=== PATIENT | female | born 1975 | race Caucasian/White ===

== ENCOUNTER 2018-05-08 13:00 | Outpatient (RCR) | payer OTHER, SELFPAY ==
--- NOTE | 2018-04-30 15:17 | HMH.PTOPWND ---
Rehab Outpt Wound Evaluation Rehab OP Wound Evaluation Start: 04/30/18 14:09 Freq: Status: Active Protocol: Document 04/30/18 15:10 SHANNAN (Rec: 04/30/18 15:17 PHORTRISTEN [id number]) Electronically Signed By Jone Aguiar, PT 04/30/18 15:10 Subjective/History History History Pt is 42 yo white female who presents with c/o swelling all over my body x ~ 18 years , gradually worsening. SHe reports significant hx of multiple abdominal surgeries including JACQUELYN/BSO, APPY, CCY, and adhesion removal x 4-5. She reports tenderness to palpation all over and intermittent numbness on extremities due to edema. She is currently suffering from and abdominal hernia and has had inguinal lymph node removal in the past. Subjective Subjective C/O pain to touch thrpoughout fredis UE and LE. Lymphedema Eval Classification of Lymphedema Secondary Lymphedema Yes Stemmer's sign Stemmer's Sign no Stage of Lymphedema Lymphedema stages Stage II (Pitting edema, increased fibrosis w/ decreased pitting) Skin Changes Dry Skin Yes Pain Scale Pain Scale (0-10) 3 Affected Extremities Areas Affected by Lymphedema/Edema Right Upper Extremity Left Upper Extremity Abdomen Right Lower Extremity Left Lower Extremity Manual Lymphatic Drainage Treatment Area MLD Treatment Area Right Upper Extremity Left Upper Extremity Abdomen Right Lower Extremity Left Lower Extremity Wound Problems/Impairments Impairments Problems/Impairmments Palpation Tenderness Increased Edema Lymphedema Present Subjective C/O Pain Impaired Self Care/Self Management Prognosis Rehab Potential Fair Clinical Impression Consistent with Diagnosis Yes Short Term Goals Number of Weeks 4 Decreased Palpation Tenderness Yes: to min Decrease Subjective C/O Pain Yes: 2 Pa
== END 2018-05-08 13:01 | disposition home or self-care (01) ==
LOC: PT 13:00
PROVIDERS: Family Provider Family Medicine; PCP Nurse Practitioner Family; Visit Provider Nurse Practitioner Family
DX: I89.0 Lymphedema, not elsewhere classified (principal)
CPT/HCPCS: 97140; 97163

== ENCOUNTER → 2018-07-03 11:41 | Outpatient (CLI) | payer OTHER, SELFPAY ==
--- NOTE | 2018-07-03 11:49 | XR_ITS ---
XR hip RT 2-3V w/pelvis HISTORY: ITS.REASON: COUGH,AMANDA HIP PAIN ORDERING PHYSICIAN: Sangita Duran PATIENT AGE: 42 years COMPARISON: None FINDINGS: Mild osteoarthritis is present involving the right hip with decrease in the joint space and osteosclerosis of the acetabulum. No fracture or dislocation. No lytic or blastic change. IMPRESSION: Mild osteoarthritis of the right hip
--- NOTE | 2018-07-03 11:49 | XR_ITS ---
XR chest 2V HISTORY: ITS.REASON: COUGH,AMANDA HIP PAIN ORDERING PHYSICIAN: Sangita Duran PATIENT AGE: 42 years COMPARISON: 03/25/2015 FINDINGS: The cardiomediastinal silhouette and pulmonary vascularity are within normal limits. The lungs are clear without infiltrates, suspicious nodules, or pleural effusions. No acute bony abnormalities. IMPRESSION: Negative chest, no acute finding
--- NOTE | 2018-07-03 11:49 | XR_ITS ---
XR hip LT 2-3V w/pelvis HISTORY: ITS.REASON: COUGH,AMANDA HIP PAIN ORDERING PHYSICIAN: Sangita Duran PATIENT AGE: 42 years COMPARISON: None FINDINGS: Minor osteoarthritic changes are present involving the left hip with minimal osteosclerosis of the acetabular roof and osteophyte formation along the inferior acetabulum. No fracture or dislocation. No lytic or blastic change. IMPRESSION: Mild osteoarthritis left hip
== END ==
PROVIDERS: PCP Nurse Practitioner Family; Visit Provider Nurse Practitioner Family
DX: R05 Cough (principal); M25.552 Pain in left hip; M25.551 Pain in right hip
CPT/HCPCS: 71046; 73502

== ENCOUNTER → 2018-07-08 12:47 | Outpatient (CLI) | payer OTHER, SELFPAY ==
--- NOTE | 2018-07-08 12:57 | XR_ITS ---
EXAM: XR lumbar spine min 4V HISTORY: Low back pain following a fall, left hip pain ORDERING PHYSICIAN: Sangita Duran PATIENT AGE: 42 years COMPARISON: None FINDINGS: Normal alignment. No fracture or dislocation. No lytic or blastic change. Mild degenerative disc disease is present at T12-L1 and L1-L2 and L4-L5. . Mild facet arthritic changes are present at L5-S1. IMPRESSION: 1. No acute finding. 2. Mild lumbar spondylosis as described above
--- NOTE | 2018-07-08 12:57 | XR_ITS ---
XR hip LT 2-3V w/pelvis HISTORY: ITS.REASON: LEFT HIP PAIN, LEFT LOWER BACK PAIN. S/P FALL ORDERING PHYSICIAN: Sangita Duran PATIENT AGE: 42 years COMPARISON: None FINDINGS: There are mild osteoarthritic changes of both hips as seen on the frontal view of the pelvis. Dedicated views of the left hip show no fracture or dislocation. No lytic or blastic change. A small bone island is present in the neck of the femur. IMPRESSION: Mild osteoarthritis of the hips
== END ==
PROVIDERS: PCP Nurse Practitioner Family; Visit Provider Nurse Practitioner Family
DX: M25.552 Pain in left hip (principal); M54.42 Lumbago with sciatica, left side
CPT/HCPCS: 72110; 73502

== ENCOUNTER → 2019-02-20 15:17 | Outpatient (CLI) | payer SELFPAY ==
--- NOTE | 2019-02-20 15:26 | XR_ITS ---
XR ankle LT min 3V HISTORY: Posttraumatic pain ITS.REASON: INJURY TO LEFT ANKLE,FALL ORDERING PHYSICIAN: Sangita Duran APRN PATIENT AGE: 43 years Comparison: None FINDINGS: No fracture or dislocation. No lytic or blastic change. There is normal mineralization.. The joint spaces are well-preserved. No significant degenerative/arthritic changes. No erosive changes evident. IMPRESSION: Negative ankle, no acute finding
--- NOTE | 2019-02-20 15:26 | XR_ITS ---
XR foot LT min 3V HISTORY: Pain following injury ITS.REASON: LEFT FOOT INJURY, FALL ORDERING PHYSICIAN: Sangita Duran APRN PATIENT AGE: 43 years COMPARISON: None FINDINGS: No fracture or dislocation. No lytic or blastic change. There is normal mineralization.. The joint spaces are well-preserved. No significant degenerative/arthritic changes. No erosive changes evident. IMPRESSION: Negative, no acute finding
--- NOTE | 2019-02-20 15:26 | XR_ITS ---
XR tibia fibula LT 2V CLINICAL INDICATION: ITS.REASON: LT LOWER LEG PAIN,FALL ORDERING PHYSICIAN: Sangita Duran APRN PATIENT AGE: 43 years Comparison: None FINDINGS: No fracture or dislocation IMPRESSION: No acute finding
== END ==
PROVIDERS: PCP Nurse Practitioner Family; Visit Provider Nurse Practitioner Family
DX: S99.912A Unspecified injury of left ankle, initial encounter (principal); S99.922A Unspecified injury of left foot, initial encounter; M79.662 Pain in left lower leg
CPT/HCPCS: 73590; 73610; 73630

== ENCOUNTER → 2019-03-19 11:16 | Outpatient (CLI) | payer OTHER, SELFPAY ==
[2019-03-20 07:35] LABS: Hepatitis C Antibody <0.1 s/co ratio (0.0-0.9)
[2019-03-20 08:46] LABS: Rapid Plasma Reagin Ab Titer Non Reactive (NonRea<1:1)
[2019-03-20 18:44] LABS: HIV Screen 4th Generation wRfx Non Reactive (Non Reactive)
== END ==
PROVIDERS: Visit Provider Obstetrics & Gynecology
DX: Z11.3 Encounter for screening for infections with a predominantly sexual mode of transmission (principal); Z01.419 Encounter for gynecological examination (general) (routine) without abnormal findings
CPT/HCPCS: 36415; 86592; 86703; 87380; G0432

== ENCOUNTER → 2019-06-26 11:06 | Outpatient (CLI) | payer OTHER, SELFPAY ==
[2019-06-26 11:58] LABS: Basophils % 0.5 % (0.1-2.0); Eosinophils # 0.2 K/mm3 (0.0-0.4); Hematocrit 43.3 % (37.0-47.0); Hemoglobin 13.8 g/dL (12.2-16.2); Lymphocytes # 3.2 K/mm3 (0.7-4.5); Lymphocytes % 49.7 % (10-50); Mean Corpuscular HGB Conc 31.9 g/dL (31.8-35.4); Mean Corpuscular Hemoglobin 29.9 pg (27.0-31.2); Mean Corpuscular Volume 93.8 fl (81-99); Mean Platelet Volume 6.5 fl (7.4-10.4); Monocytes # 0.3 K/mm3 (0.1-1.0); Monocytes % 5.3 % (1.7-9.3); Neutrophils # 2.7 K/mm3 (1.8-7.8); Neutrophils % 41.5 % (37.0-80.0); Platelet Count 225 K/mm3 (142-424); Red Blood Count 4.61 M/mm3 (4.20-5.40); Red Cell Distribution Width 13.5 % (11.5-17.5); White Blood Count 6.4 K/mm3 (4.8-10.8)
[2019-06-26 13:41] LABS: Alanine Aminotransferase 27 U/L (12-78); Albumin Level 3.6 gm/dL (3.4-5.0); Albumin/Globulin Ratio 1.1 (1.1-1.8); Alkaline Phosphatase 66 U/L (46-116); Anion Gap 8.4 mEq/L (5-15); Aspartate Amino Transferase 41 U/L (15-37); Bilirubin,Total 0.3 mg/dL (0.2-1.0); Blood Urea Nitrogen 12 mg/dL (7-18); Carbon Dioxide 32 mmol/L (21.0-32.0); Chloride 105 mmol/L (98-107); Creatinine,Serum 1.08 mg/dL (0.55-1.02); Estimated Glomerular Filt Rate 55 ml/min (>60); GFR (African American) 67 ML/MIN (>60); Globulin 3.4 gm/dl (1.3-3.2); Glucose 87 mg/dL (74-106); Potassium 4.4 mmoL/L (3.5-5.1); Sodium 141 mmol/L (136-145)
== END ==
PROVIDERS: Visit Provider Nurse Practitioner Family
DX: R10.9 Unspecified abdominal pain (principal)
CPT/HCPCS: 36415; 80053; 85025

== ENCOUNTER 2020-03-08 18:45 | Observation (INO) | payer OTHER, SELFPAY ==
[2020-03-08] VITALS (9 sets, daily range): BP systolic 111–147; BP diastolic 31–109; PULSE 83–97; RESP 16–22; TEMP 36.9–37.7; O2SAT 96–100; BMI 35.9
--- NOTE | 2020-03-08 18:59 | ECG_ITS ---
APPROVED REPORT Exam: Resting ECG HR:94 bpm ECG Measurements Heart Rate 94 AXES RI 148 P 61 QRSd 86 QRS 55 QT 378 T 34 QTc 472 <Conclusion> Normal sinus rhythm Low voltage QRS ST abnormality, possible digitalis effect Abnormal ECG Electronically signed by : Polo Blakely, 03/09/2020 08:26:51
--- NOTE | 2020-03-08 18:59 | XR_ITS ---
PROCEDURE: XR CHEST PORTABLE CLINICAL HISTORY: seizure COMPARISON: CXR CHEST(2 VIEWS-NOT PORTABLE) from 12/10/2014 CXR CHEST(2 VIEWS-NOT PORTABLE) from 03/25/2015 [facility] CTA-CHEST from 05/24/2017 infiltrate in the right lung base CXR2V XR chest 2V from 07/03/2018 FINDINGS: There is mild patient rotation. Normal heart size. Overall there is increased density of the right hemithorax compared to the left side which is felt to be technical in nature. There is some increased density in the right lower lobe which could be due to some underlying infiltrate or atelectasis. IMPRESSION: Possible right basilar infiltrate. Consider upright PA and lateral chest for further evaluation Dictated by: Kyle Benítez MD 03/08/2020 22:03 Electronically signed by Kyle Benítez MD in [place] 03/08/2020 22:03
--- NOTE | 2020-03-08 19:00 | CT_ITS ---
PROCEDURE: CT HEAD/BRAIN WO CON CLINICAL INDICATION: seizure Seizure, unresponsive COMPARISON: HDWO CT HEAD W/O CONTRAST from 06/27/2014 TECHNIQUE: Axial images obtained. All CT scans at the facility use one or more dose reduction, viz: automated exposure control, ma/kV adjustment per patient size (including targeted exams where dose is matched to indication, i.e. head), or iterative reconstruction technique. FINDINGS: No midline shift, mass effect, intracranial hemorrhage, hydrocephalus, or extra-axial fluid collection is evident. The calvarium has an unremarkable appearance. No mastoid effusion. There is mild mucosal thickening in the maxillary sinuses IMPRESSION: No acute intracranial finding Dictated by: Kyle Benítez MD 03/08/2020 22:18 Electronically signed by Kyle Benítez MD in [facility] 03/08/2020 22:18
--- NOTE | 2020-03-08 19:10 | PC.NURSE ---
spoke with pt daughter at this time, states she is unable to come to the hospital r/t having her small children with her. States that she was on the phone with Pt and pt was not acting right , states her grandmother (pts mother) observed pt having a seizure. Reports pt has hx of seizures. Notified ER .
--- NOTE | 2020-03-08 19:12 | HMH.EDGENADL ---
ED Disposition Condition on Discharge: Fair - Critical Care Critical Care Time: Yes Total Critical Care Time: 40 Vital system(s) involved:: Central Nervous System My critical care processes included: Assessment & monitoring of V/S, Initial and Re-exams, Data Review/Interpretation, Coordinating Care, Medication Orders and management, Documentation <Ward Nuñez - Last Filed: 03/08/20 20:04> <Walter Reynolds - Last Filed: 03/08/20 22:11> Clinical Impression: Seizures Aspiration pneumonia Qualifiers: Aspiration pneumonia type: unspecified Laterality: right Lung location: lower lobe of lung Qualified Code(s): J69.0 - Pneumonitis due to inhalation of food and vomit Disposition: Admitted as Observation Referrals: Provider,Referral, MD [Primary Care Provider] - Attestation: On 03/08/20, the high probability of a clinically significant, sudden or life threatening deterioration of the following system(s) required my full and direct attention, intervention and personal management. The time I documented below is in addition to time spent performing reported procedures but includes the following listed in this critical care notation. Medical Decision Making - Tristan Inquiry Pt receiving controlled substance: Yes (ativan for seizure) Tristan was queried for this patient: Yes Reference #:: [id number] Risks and benefits of using a controlled substance: were not discussed with pt by me Comment: 7 rxs. last 2 rxs gabapentin - Lab Data Result diagrams: 03/08/20 18:50 03/08/20 18:50 - Reevaluation(s) Time: 19:16 <SavannahWard - Last Filed: 03/08/20 20:04> - Lab Data Lab results reviewed: Yes: I reviewed the patient's lab results. Result diagrams: 03/08/20 18:50 03/08/20 18:50 - CT Data CT Scan: Head Time Received: 22:[address] Reviewed: Yes: I have viewed the radiologist's interpretation Preliminary Findings: Normal/NAD - Physician Consults Physician Consulted: lorie Reason -: Admission <Walter Reynolds - Last Filed: 03/08/20 22:11> Vital Signs: 03/08/20 18:45 03/08/20 18:52 03/08/20 19:32 Temperature 99.9 F H Temperature Source Rectal Pulse Rate [Right Radial] 83 93 H 94 H Respiratory Rate 22 22 18 Blood Pressure [Right Arm] 127/31 L 111/67 116/65 Blood Pressure Mean [Right Arm] 63 81 82 Blood Pressure Source [Right Arm] Automatic Cuff Automatic Cuff Blood Pressure Position [Right Arm] Sitting Sitting 02 Sat by Pulse Oximetry 100 100 97 Oxygen Delivery Method Non-Rebreather Nasal Cannula Nasal Cannula Oxygen Flow Rate (LPM) 15 4 4 03/08/20 20:21 03/08/20 21:25 03/08/20 21:54 Temperature Temperature Source Pulse Rate [Right Radial] 85 87 93 H Respiratory Rate 18 18 18 Blood Pressure [Right Arm] 111/46 L 123/67 116/79 Blood Pressure Mean [Right Arm] 67 85 91 Blood Pressure Source [Right Arm] Blood Pressure Position [Right Arm] 02 Sat by Pulse Oximetry 96 99 97 Oxygen Delivery Method Nasal Cannula Nasal Cannula Nasal Cannula Oxygen Flow Rate (LPM) 4 2 2 - Lab Data Lab Results 03/08/20 18:50: WBC 9.0, RBC 4.88, Hgb 14.7, Hct 49.2 H, MCV 100.7 H, MCH 30.2, MCHC 30.0 L, RDW 13.6, Plt Count 240, MPV 7.0 L, Neut % (Auto) 36.2 L, Lymph % (Auto) 55.0 H, [place] % (Auto) 5.2, Eos % (Auto) 2.1, Baso % (Auto) 1.5, Neut # (Auto) 3.3, Lymph # (Auto) 5.0 H, [place] # (Auto) 0.5, Eos # (Auto) 0.2, Baso # (Auto) 0.1, Total Counted 100, Neutrophils % (Manual) 30 L, Lymphocytes % (Manual) 63 H, Monocytes % (Manual) 7, Platelet Estimate Normal, Anisocytosis 1+, Macrocytosis 1+ 03/08/20 18:50: Sodium 141, Potassium 3.7, Chloride 100, Carbon Dioxide 29, Anion Gap 15.7 H, BUN 12, Creatinine 1.10 H, Estimated Creat Clear 117, Estimated GFR 54 L, Est GFR ( Amer) 65, Glucose 103 H, Calcium 9.8, Troponin I < 0.01 03/08/20 18:50: Plasma/Serum Alcohol < 10 03/08/20 18:50: Total Valproic Acid 13.6 L 03/08/20 18:50: Total Bilirubin 0.5, Direct Bilirubin 0.4, Conjugated Bilirubin 0.0, Indirect Bi
[2020-03-08 19:13] LABS: Basophils # 0.1 K/mm3 (0-0.2); Basophils % 1.5 % (0.1-2.0); Eosinophils # 0.2 K/mm3 (0.0-0.4); Eosinophils % 2.1 % (0.1-12.0); Hematocrit 49.2 % (37.0-47.0); Hemoglobin 14.7 g/dL (12.2-16.2); Mean Corpuscular Hemoglobin 30.2 pg (27.0-31.2); Mean Corpuscular Volume 100.7 fl (81-99); Monocytes # 0.5 K/mm3 (0.1-1.0); Monocytes % 5.2 % (1.7-9.3); Neutrophils # 3.3 K/mm3 (1.8-7.8); Neutrophils % 36.2 % (37.0-80.0); Platelet Count 240 K/mm3 (142-424); Red Blood Count 4.88 M/mm3 (4.20-5.40); Red Cell Distribution Width 13.6 % (11.5-17.5)
[2020-03-08 19:14] LABS: Chloride 100 mmol/L (98-107)
[2020-03-08 19:15] LABS: Potassium 3.7 mmoL/L (3.5-5.1); Sodium 141 mmol/L (136-145)
[2020-03-08 19:17] LABS: MANUAL DIFFERENTIAL MANUAL DIFFERENTIAL (MANUAL DIFF)
[2020-03-08 19:18] LABS: Anion Gap 15.7 mEq/L (5-15); Blood Urea Nitrogen 12 mg/dl (7-17); Calcium 9.8 mg/dl (8.4-10.2); Carbon Dioxide 29 mmol/L (22.0-30.0); Creatinine Clearance Estimated 117 mL/min (50-200); Estimated Glomerular Filt Rate 54 ml/min (>60); GFR (African American) 65 ML/MIN (>60); Glucose 103 mg/dl (74-100)
[2020-03-08 19:25] LABS: Ethyl Alcohol < 10 mg/dl (0-10)
[2020-03-08 19:29] LABS: Valproic Acid, (Depakene) 13.6 ug/ml (50-100)
[2020-03-08 19:38] LABS: Troponin I < 0.01 ng/ml (0.00-0.034)
[2020-03-08 19:49] LABS: Lymphocytes % 63 % (10-50); Monocytes % 7 % (2-9); Neutrophils % 30 % (42-76); Total Cells Counted 100
[2020-03-08 19:50] LABS: Anisocytosis 1+; Macrocytosis 1+; Platelet Estimate Normal
[2020-03-08 20:05] LABS: Microscopic, Urine URINE MICROSCOPIC (MICROSCOPIC)
[2020-03-08 20:07] LABS: Appearance,Urine CLEAR (Clear); Bilirubin,Urine Negative (Negative); Blood, Urine Negative (Negative); Color,Urine YELLOW (Yellow); Glucose,Urine (UA) Negative (Negative); Ketones,Urine Negative (Negative); Leukocyte Esterase,Urine Negative (Negative); Nitrate,Urine Negative (Negative); PH,Urine 5.5 (5.0-8.5); Protein,Urine Negative (Negative); Urobilinogen,Urine 0.2 EU/dl (0.2)
[2020-03-08 20:23] LABS: Adenovirus,PCR Not Detected (NotDetected); Bordetella Pertussis Not Detected (NotDetected); Chlamydophila Pneumoniae, PCR Not Detected (NotDetected); Coronavirus 19, PCR Not Detected (NotDetected); Coronavirus 229E Not Detected (NotDetected); Coronavirus NL63 Not Detected (NotDetected); Coronavirus OC43 Not Detected (NotDetected); Coronovirus HKU1,PCR Not Detected (NotDetected); Human Metapneumovirus Not Detected (NotDetected); Influenza A, PCR Not Detected (NotDetected); Influenza AH1, 2009 Not Detected (NotDetected); Influenza AH1, PCR Not Detected (NotDetected); Influenza AH3,PCR Not Detected (NotDetected); Influenza B, PCR Not Detected (NotDetected); Mycoplasma Pneumoniae, PCR Not Detected (NotDected); Parainfluenza 1, PCR Not Detected (NotDetected); Parainfluenza 2, PCR Not Detected (NotDetected); Parainfluenza 3, PCR Not Detected (NotDetected); Parainfluenza 4, PCR Not Detected (NotDetected); Respiratory Syncytial Virus Not Detected (NotDetected); Rhinovirus/Enterovirus Not Detected (NotDetected)
[2020-03-08 20:24] LABS: Barbiturates Screen,Urine Negative ng/ml (<200)
[2020-03-08 20:25] LABS: Benzodiazepines Screen,Urine Negative ng/ml (<200)
[2020-03-08 20:26] LABS: Methadone Screen,Urine Negative ng/ml (<300)
[2020-03-08 20:27] LABS: Cannabinoid Screen,Urine Negative ng/ml (<50)
[2020-03-08 20:28] LABS: Cocaine Screen,Urine Negative ng/ml (<300); Opiate Screen,Urine Positive ng/ml (<300)
[2020-03-08 20:29] LABS: Bacteria,Urine Trace /lpf; Phencyclidine Screen,Urine Negative ng/ml (<25); WBC,Urine Occasional #/hpf (0-3)
[2020-03-08 20:31] LABS: Amphetamine/Metha Screen,Urine Negative ng/ml (<1000)
[2020-03-08 20:34] LABS: Alanine Aminotransferase 28 U/L (12-78); Albumin Level 4.6 g/dl (3.5-5.0); Alkaline Phosphatase 62 U/L (38-126); Aspartate Amino Transferase 44 U/L (14-36); Bilirubin,Direct 0.4 mg/dl (0.0-0.4); Bilirubin,Indirect 0.1 mg/dL (0.0-0.9); Bilirubin,Total 0.5 mg/dl (0.2-1.3); Bilirubin,Unconjugated 0.2 mg/dL (0.0-1.1); Total Protein,Serum 8.6 g/dl (6.3-8.2)
--- NOTE | 2020-03-08 20:42 | PC.NURSE ---
confirmed with Carlos Eduardo from pharmacy about a clindamycin dosing - 900mg TID
[2020-03-08 20:54] LABS: Lactic Acid 1.1 mmol/L (0.7-2.1)
--- NOTE | 2020-03-08 23:10 | PC.NURSE ---
LAB PERSONEL AT BEDSIDE COLLECTING LABS AT THIS TIME
--- NOTE | 2020-03-08 23:22 | PC.NURSE ---
pt came in with multiple medications in bag, pt unable to tell staff if she is actually taking these medications and last time doses were taken d/t lethargy. will consult pharmacy in am.
--- NOTE | 2020-03-08 23:39 | PC.NURSE ---
2246: arrived to floor via stretcher at this time. pt pushed to unit by RN. pt would arouse to painful stimuli and open eyes but speech incoherent. pt assisted to bed x 4 staff assist. Rn x 2 at bedside. seizure pads in place 2247: pt began to tremor and shake. upper extremeties began to draw up, pt would not respond to staff at this time pupils dilated at 4+not reactive warehouse record clerk notified. o2 sat found to be 74% o2 increased. 2248: Pt began to convulse harder shaking entire bed. RN x 2 at bedside 2250: warehouse record clerk at bedside at this time. pt calming down mild tremors noted 2251: seizure complete 225: 112/57, 92, 76% o2 2253: Dr Blakely paged 2259: spoke with Dr Blakely at this time report given on patients seizure length of time and pts convulsions. md states give 1mg of Ativan and continue to monitor. phone order repeated and verified at this time. Ativan 1 mg given stat at this time verified by second RN. seizure pads remain in place at this time 2300: o2 sat at this time 100% o2 decreased to 2L NC
[2020-03-09] VITALS (8 sets, daily range): BP systolic 102–138; BP diastolic 66–101; PULSE 76–97; RESP 16–18; TEMP 36.7–36.8; O2SAT 97–100
[2020-03-09 00:13] LABS: Troponin I < 0.01 ng/ml (0.00-0.034)
--- NOTE | 2020-03-09 00:18 | PC.NURSE ---
pt is resting comfortably at this time. arouses only to painful stimuli, speech remains incomprehensible and pt unable to follow commands. vital signs stable, seizure pads in place will continue to monitor at this time
--- NOTE | 2020-03-09 01:15 | PC.NURSE ---
pt resting comfortably at this time. pt continues abdominal breathing, arouses easily to painful stimuli, pt words still incoherent and quickly doses back off to sleep, iv patent and infusing well, seizure pads remain in place. lab personel at bedside at this time collecting labs
[2020-03-09 02:01] LABS: Troponin I < 0.01 ng/ml (0.00-0.034)
--- NOTE | 2020-03-09 02:06 | PC.NURSE ---
pt repositioned to right side. pt responded well to turning and able to follow simple commands. iv infusing well, seizure pads remain in place vs stable will continue to monitor at this time
--- NOTE | 2020-03-09 03:36 | PC.NURSE ---
pt resting comfortably with eyes closed. pt will respond to painful stimuli and simple comands. no distress noted at this time will continue to monitor
--- NOTE | 2020-03-09 05:32 | PC.NURSE ---
pt is alert and oriented x 2 at this time (person and place) speech remains garbled but pt is able to follow simple commands, no other seizure activity since seizure at 2248, pt became tearful after lab stick and is requesting phone and coping skills pt easily calmed down at this time and is resting comfortably, exp rhonci noted throughout bilateral lungs, respirations nonlabored at this time and WNL, heart regular, HANNA, 20g to RAC and LAC patent. no distress noted will continue to monitor
[2020-03-09 05:34] LABS: Basophils # 0.2 K/mm3 (0-0.2); Basophils % 2.2 % (0.1-2.0); Eosinophils # 0.1 K/mm3 (0.0-0.4); Eosinophils % 1.3 % (0.1-12.0); Hematocrit 44.1 % (37.0-47.0); Hemoglobin 13.9 g/dL (12.2-16.2); Lymphocytes # 3.2 K/mm3 (0.7-4.5); Mean Corpuscular HGB Conc 31.4 g/dL (31.8-35.4); Mean Corpuscular Hemoglobin 30.9 pg (27.0-31.2); Mean Corpuscular Volume 98.3 fl (81-99); Mean Platelet Volume 7.4 fl (7.4-10.4); Monocytes # 0.6 K/mm3 (0.1-1.0); Monocytes % 5.7 % (1.7-9.3); Neutrophils # 6.2 K/mm3 (1.8-7.8); Neutrophils % 59.8 % (37.0-80.0); Platelet Count 215 K/mm3 (142-424); Red Blood Count 4.49 M/mm3 (4.20-5.40); Red Cell Distribution Width 13.7 % (11.5-17.5); White Blood Count 10.3 K/mm3 (4.8-10.8)
[2020-03-09 05:35] LABS: Chloride 99 mmol/L (98-107); Potassium 4.4 mmoL/L (3.5-5.1); Sodium 138 mmol/L (136-145)
[2020-03-09 05:38] LABS: Anion Gap 7.4 mEq/L (5-15); Blood Urea Nitrogen 11 mg/dl (7-17); Calcium 8.9 mg/dl (8.4-10.2); Carbon Dioxide 36 mmol/L (22.0-30.0); Creatinine Clearance Estimated 117 mL/min (50-200); Estimated Glomerular Filt Rate 54 ml/min (>60); GFR (African American) 65 ML/MIN (>60); Glucose 90 mg/dl (74-100); Magnesium 1.8 mg/dl (1.6-2.3)
--- NOTE | 2020-03-09 07:01 | PC.NURSE ---
report given to Azael Wilcox RN
--- NOTE | 2020-03-09 08:07 | P.CONPHA_ITS ---
[facility] Pharmacy VTE Monitoring - Patient Demographics Admission date: 03/08/20 Report Date: 03/09/20 Time: 08:07 Allergies/Adverse Reactions: Patient Allergies acetaminophen [From ULTRACET] Allergy (Mild, Verified 03/08/20 19:04) amitriptyline [AMITRIPTYLINE] Allergy (Mild, Verified 03/08/20 19:04) aspirin [ASPIRIN] Allergy (Mild, Verified 03/08/20 19:04) butorphanol [From STADOL] Allergy (Mild, Verified 03/08/20 19:04) carbamazepine [From TEGRETOL] Allergy (Mild, Verified 03/08/20 19:04) celecoxib [From CELEBREX] Allergy (Mild, Verified 03/08/20 19:04) ketorolac [From TORADOL] Allergy (Mild, Verified 03/08/20 19:04) meloxicam [MELOXICAM] Allergy (Mild, Verified 03/08/20 19:04) metoclopramide [From REGLAN] Allergy (Mild, Verified 03/08/20 19:04) NSAIDS (Non-Steroidal Anti-Inflamma [NSAIDS (NON-STEROIDAL ANTI-INFLAMMA] Allergy (Mild, Verified 03/08/20 19:04) phenobarbital [PHENOBARBITAL] Allergy (Mild, Verified 03/08/20 19:04) promethazine [From PHENERGAN] Allergy (Mild, Verified 03/08/20 19:04) propoxyphene [From DARVOCET-N] Allergy (Mild, Verified 03/08/20 19:04) tramadol [From ULTRACET] Allergy (Mild, Verified 03/08/20 19:04) Height: 1.78 m Weight: 113.398 kg Patient Problems: Current Active Problems Seizures (Acute) Aspiration pneumonia (Acute) - VTE Risk Labs: VTE Related Lab Results Hgb 13.9 g/dL (12.2-16.2) 03/09/20 05:10 Hct 44.1 % (37.0-47.0) 03/09/20 05:10 Plt Count 215 K/mm3 (142-424) 03/09/20 05:10 BUN 11 mg/dl (7-17) 03/09/20 05:10 Creatinine 1.10 mg/dl (0.52-1.04) H 03/09/20 05:10 Estimated Creat Clear 117 mL/min (50-200) 03/09/20 05:10 VTE Score: 6 VTE Risk Level: Moderate Risk - Prophylaxis VTE Prophylaxis Ordered?: Yes Types of VTE Prophylaxis: TEDS Knee High Location of Applied Device: Bilateral Lower Extremeties - VTE Diagnosis Confirmed Treatment or plan recommended: Continue Current Treatment
--- NOTE | 2020-03-09 08:18 | HMH.HP ---
*Admission Date: 03/08/20 *Chief complaint: Seizure *History of present illness: 44-year-old female with history of seizure disorder and substance dependence presented to the emergency department after apparent seizure at home. Further seizures were witnessed by EMS and patient even seized while in the emergency department. Patient was postictal after seizures and even this morning is somewhat sedated. Patient is unable to provide any meaningful history of her seizures. Patient was accompanied to the emergency department by a bag of medications some of which are her seizure medications. Based on the pill packs available it would appear that patient has only been taking her Keppra as directed. Keppra dosing is 750 twice daily. Patient's urine drug screen was positive for opiates. Patient denies any recent opiate use or being treated for her substance dependence with methadone. Work-up in the emergency department also revealed right lower lobe infiltrate from suspected aspiration HMH History I have reviewed the patient's past medical history: Yes Medical History: Reports:: Migraine, Seizures *Have you ever received a pneumonia vaccine?: No *Have you received a flu vaccine this season?: No Other Medical History: Reports: Arthritis, Thyroid Disease, Other (Depression, anxiety, PTSD.) Comment:: Fibromyalgia Other Surgeries: Yes: Appendectomy, Cholecystectomy, Hysterectomy-Total Amputation: No Fractures: No - *Social History Smoking Status: Unknown if ever smoked Tobacco Type: cigarettes # Packs/Day (cigarettes): 2 Alcohol Intake: never Alcohol Intake Frequency:: other Substance Use Type: methamphetamine *Occupational Status:: other *Travel in the last 8 weeks: None Family Hx:: No significant family history Review of Systems - Constitutional Denies body ache(s), Denies chills, Denies fever(s), Denies headache(s) - *Cardiovascular Denies chest pain, Denies chest pain at rest, Denies shortness of breath - *Respiratory Reports cough, Denies change in phlegm color, Denies chest congestion Meds Home Medications Medication Instructions Recorded Confirmed Type Benzonatate [Tessalon Perle 100mg 100 mg PO TID PRN #30 cap 09/17/18 03/03/19 Rx Cap] Clarithromycin [Biaxin] 250 mg PO BID #20 tab 09/17/18 03/03/19 Rx Fluticasone Propionate [Flonase 2 spr NS DAILY #1 bottle 09/17/18 03/03/19 Rx 50mcg nasal spray 16gm] estradiol 1 mg tablet 1 mg PO DAILY #30 tab 03/03/19 Rx Allergies Allergy/AdvReac Type Severity Reaction Status Date / Time acetaminophen [From ULTRACET] Allergy Mild Verified 03/08/20 19:04 amitriptyline [AMITRIPTYLINE] Allergy Mild Verified 03/08/20 19:04 aspirin [ASPIRIN] Allergy Mild Verified 03/08/20 19:04 butorphanol [From STADOL] Allergy Mild Verified 03/08/20 19:04 carbamazepine [From TEGRETOL] Allergy Mild Verified 03/08/20 19:04 celecoxib [From CELEBREX] Allergy Mild Verified 03/08/20 19:04 ketorolac [From TORADOL] Allergy Mild Verified 03/08/20 19:04 meloxicam [MELOXICAM] Allergy Mild Verified 03/08/20 19:04 metoclopramide [From REGLAN] Allergy Mild Verified 03/08/20 19:04 NSAIDS (Non-Steroidal Allergy Mild Verified 03/08/20 19:04 Anti-Inflamma [NSAIDS (NON-STEROIDAL ANTI-INFLAMMA] phenobarbital [PHENOBARBITAL] Allergy Mild Verified 03/08/20 19:04 promethazine [From PHENERGAN] Allergy Mild Verified 03/08/20 19:04 propoxyphene Allergy Mild Verified 03/08/20 19:04 [From DARVOCET-N] tramadol [From ULTRACET] Allergy Mild Verified 03/08/20 19:04 Exam Vital signs and Labs for Last 24 Hours: Temp Pulse Resp BP Pulse Ox 98.0 F 76 16 112/66 97 03/09/20 07:58 03/09/20 07:58 03/09/20 07:58 03/09/20 07:58 03/09/20 07:59 Laboratory Results - last 24 hr 03/08/20 18:50: WBC 9.0, RBC 4.88, Hgb 14.7, Hct 49.2 H, MCV 100.7 H, MCH 30.2, MCHC 30.0 L, RDW 13.6, Plt Count 240, MPV 7.0 L, Neut % (Auto) 36.2 L, Lymph % (Auto) 55.0 H, [place] % (Auto) 5.2, Eos % (Aut
--- NOTE | 2020-03-09 10:10 | HMH.PHAINT ---
MED REC-COMPLETED MED REC USING PATIENT PILL PACK CONTAINERS.
--- NOTE | 2020-03-09 11:15 | PC.NURSE ---
Pt upset and crying. Requests to talk to her mother on the phone. Pt's mother's phone number called x2 times, no answer. Pt then had staff call her mother's boyfriends phone. He answers phone and pt is able to talk to her mother. Pt is crying and upset, stating that she is affraid telling her mother I need my mommy and requesting that she come up here.
--- NOTE | 2020-03-09 11:21 | PC.NURSE ---
Dr. Malik called and notified of pt attempting to climb out of bed, stating that she is leaving this joint and I need to get out of here and we figured out what was wrong with me and we fixed me and now I'm going. Dr. Malik V/U and states that he will discharge her home if she is back to her normal
--- NOTE | 2020-03-09 11:58 | HMH.DCSUM ---
General - General Admission date:: 03/08/20 Discharge date: 03/09/20 HPI HPI: 44-year-old female with history of seizure disorder and substance dependence presented to the emergency department after apparent seizure at home. Further seizures were witnessed by EMS and patient even seized while in the emergency department. Patient was postictal after seizures and even this morning is somewhat sedated. Patient is unable to provide any meaningful history of her seizures. Patient was accompanied to the emergency department by a bag of medications some of which are her seizure medications. Based on the pill packs available it would appear that patient has only been taking her Keppra as directed. Keppra dosing is 750 twice daily. Patient's urine drug screen was positive for opiates. Patient denies any recent opiate use or being treated for her substance dependence with methadone. Work-up in the emergency department also revealed right lower lobe infiltrate from suspected aspiration Hospital Course Hospital Course: Patient was admitted for observation. She was given Keppra 1000mg q12. On the morning of 03/09 patient was initially somnolent during rounds. Around 10 a.m. patient became more awake and alert. She was able to ambulate without difficulty and tolerated a regular diet. Patient demanded discharged and request was granted. She will follow up in the office in one week. Objective Vital signs: Temp Pulse Resp BP Pulse Ox 98.0 F 76 16 112/66 100 03/09/20 07:58 03/09/20 07:58 03/09/20 07:58 03/09/20 07:58 03/09/20 10:20 Results Labs on day of discharge: Labs from last 24 hours 03/09/20 03/09/20 03/09/20 05:10 05:10 01:25 WBC 10.3 RBC 4.49 Hgb 13.9 Hct 44.1 MCV 98.3 MCH 30.9 MCHC 31.4 L RDW 13.7 Plt Count 215 MPV 7.4 Neut % (Auto) 59.8 Lymph % (Auto) 31.0 [place] % (Auto) 5.7 Eos % (Auto) 1.3 Baso % (Auto) 2.2 H Neut # (Auto) 6.2 Lymph # (Auto) 3.2 [place] # (Auto) 0.6 Eos # (Auto) 0.1 Baso # (Auto) 0.2 Total Counted Neutrophils % (Manual) Lymphocytes % (Manual) Monocytes % (Manual) Platelet Estimate Anisocytosis Macrocytosis Sodium 138 Potassium 4.4 Chloride 99 Carbon Dioxide 36 H D Anion Gap 7.4 BUN 11 Creatinine 1.10 H Estimated Creat Clear 117 Estimated GFR 54 L Est GFR ( Amer) 65 Glucose 90 Lactate Calcium 8.9 Magnesium 1.8 Total Bilirubin Direct Bilirubin Conjugated Bilirubin Indirect Bilirubin Unconjugated Bilirubin AST ALT Alkaline Phosphatase Troponin I < 0.01 Total Protein Albumin Urine Color Urine Appearance Urine pH Ur Specific [place] Urine Protein Urine Glucose (UA) Urine Ketones Urine Blood Urine Nitrate Urine Bilirubin Urine Urobilinogen Ur Leukocyte Esterase Urine WBC Urine Bacteria Urine Opiates Screen Urine Methadone Screen Ur Barbituates Screen Total Valproic Acid Ur Phencyclidine Scrn Ur Amphetamines Screen U Benzodiazepines Scrn Urine Cocaine Screen U Marijuana (THC) Screen Plasma/Serum Alcohol Chlamy pneumoniae PCR Adenovirus (PCR) B. pertussis DNA (PCR) Coronavirus OC43 (PCR) Coronavirus HKU1 (PCR) Coronavirus 229E (PCR) COVID-19 PCR Coronavirus NL63 (PCR) Human Metapneumovir PCR Influenza A (H1) PCR Influ A (H1N1/09) PCR Influenza A (H3) PCR Influenza Type A (PCR) Influenza Type B (PCR) M. pneumoniae (PCR) Parainfluenza 1 (PCR) Parainfluenza 2 (PCR) Parainfluenza 3 (PCR) Parainfluenza 4 (PCR) RSV (PCR) Entero/Rhino (PCR) 03/08/20 03/08/20 03/08/20 23:19 20:35 20:30 WBC RBC Hgb Hct MCV MCH MCHC RDW Plt Count MPV Neut % (Auto) Lymph % (Auto) [place] % (Auto) Eos % (Auto) Baso
--- NOTE | 2020-03-09 12:09 | PC.NURSE ---
Pt's niece here to pick her up
--- NOTE | 2020-03-09 12:15 | PC.NURSE ---
Pt given discharge instructions and importance of completing antibiotic prescription. Verbalizes understanding.
--- NOTE | 2020-03-09 12:35 | PC.NURSE ---
Pt assisted to private vehicle with OB staff member via w/c.
[2020-03-12 09:09] LABS: Oxcarbazepine 1 ug/mL (10-35)
[2020-03-12 09:09] LABS: Levetiracetam (Keppra) 59.8 ug/mL (10.0-40.0)
== END 2020-03-09 12:35 | disposition home or self-care (01) ==
LOC: ER 22:12 → OB 23:03
PROVIDERS: Emergency Medicine; Admitting Provider Internal Medicine Adolescent Medicine; Emergency Provider Emergency Medicine; Visit Provider Family Medicine
DX: R56.9 Unspecified convulsions (principal); J69.0 Pneumonitis due to inhalation of food and vomit; Z79.899 Other long term (current) drug therapy; Z88.8 Allergy status to other drugs, medicaments and biological substances
CPT/HCPCS: 36415; 70450; 71045; 80048; 80076; 80164; 80177; 80183; 80305; 81001; 83605; 83735; 84484; 85007; 85025; 87040; 87581; 87633; 87798; 93005; 94760; 96365; 96366; 96375; 99285; G0378; J1953

== ENCOUNTER 2020-03-20 18:41 | Emergency (ER) | payer OTHER, SELFPAY ==
[2020-03-20 18:41] VITALS: BP 143/112; PULSE 113; RESP 22; TEMP 38.2; O2SAT 100; BMI 43.0
--- NOTE | 2020-03-20 18:48 | HMH.EDSEIZ ---
ED Disposition Clinical Impression: Dehydration Epileptic seizure Qualifiers: Epilepsy type: unspecified Intractability: not intractable Status epilepticus: without status epilepticus Qualified Code(s): G40.909 - Epilepsy, unspecified, not intractable, without status epilepticus Disposition: Home, Self-Care Condition on Discharge: Good Instructions: DI for Seizure Disorder -- Adult, DI for Dehydration -- Adult Additional Instructions: It is important that you take your seizure medications as prescribed. Follow-up with your primary care provider in 2 to 3 days for reevaluation. Return to the emergency department for any acute new concerns. Referrals: Provider,Referral, [Primary Care Provider] - 3 days - Critical Care Critical Care Time: No Attestation: On 03/20/20, the high probability of a clinically significant, sudden or life threatening deterioration of the following system(s) required my full and direct attention, intervention and personal management. The time I documented below is in addition to time spent performing reported procedures but includes the following listed in this critical care notation. Medical Decision Making - Medical Records Medical records reviewed: Yes: I reviewed the patient's medical records. - Tristan Inquiry Pt receiving controlled substance: Yes Tristan was queried for this patient: No Risks and benefits of using a controlled substance: were not discussed with pt by me (AMS - got ativan for seizure) Vital Signs: 03/20/20 18:41 03/20/20 20:06 Temperature 100.7 F H 98.9 F Temperature Source Rectal Oral Pulse Rate [Right] 113 H 81 Respiratory Rate 22 12 Blood Pressure [Right Arm] 143/112 H 135/85 Blood Pressure Mean [Right Arm] 122 101 02 Sat by Pulse Oximetry 100 100 Oxygen Delivery Method Non-Rebreather Nasal Cannula Oxygen Flow Rate (LPM) 2 - Lab Data Lab Results 03/20/20 18:40: Urine Color Yellow, Urine Appearance Clear, Urine pH 5.5, Ur Specific [place] >= 1.030, Urine Protein Negative, Urine Glucose (UA) Negative, Urine Ketones Trace, Urine Blood Negative, Urine Nitrate Negative, Urine Bilirubin Negative, Urine Urobilinogen 0.2, Ur Leukocyte Esterase Negative, Urine WBC 3-5, Ur Squamous Epith Cells Occasional, Amorphous Sediment Trace, Urine Mucus 1+ 03/20/20 18:40: WBC 9.5, RBC 4.84, Hgb 15.0, Hct 45.6, MCV 94.2, MCH 31.0, MCHC 32.9, RDW 13.5, Plt Count 305, MPV 7.1 L, Neut % (Auto) 50.1, Lymph % (Auto) 40.0, [place] % (Auto) 5.5, Eos % (Auto) 2.9, Baso % (Auto) 1.4, Neut # (Auto) 4.8, Lymph # (Auto) 3.8, [place] # (Auto) 0.5, Eos # (Auto) 0.3, Baso # (Auto) 0.1 03/20/20 18:40: Urine HCG, Qual Negative 03/20/20 18:40: Sodium 136, Potassium 3.4 L, Chloride 91 L, Carbon Dioxide 28, Anion Gap 20.4 H, BUN 18 H, Creatinine 1.60 H, Estimated Creat Clear 49, Estimated GFR 35 L, Est GFR ( Amer) 42 L, Glucose 101 H, Calcium 10.0 03/20/20 18:40: Urine Opiates Screen Positive H, Urine Methadone Screen Negative, Ur Barbituates Screen Negative, Ur Phencyclidine Scrn Negative, Ur Amphetamines Screen Negative, U Benzodiazepines Scrn Negative, Urine Cocaine Screen Positive H, U Marijuana (THC) Screen Negative 03/20/20 18:40: Plasma/Serum Alcohol < 10 Result diagrams: 03/20/20 18:40 03/20/20 18:40 Orders (Tests/Meds): ED MEDICATIONS Generic Name Dose Route Start Last Admin Trade Name Freq PRN Reason Stop Dose Admin Sodium Chloride 1,000 mls @ 999 mls/hr 03/20/20 19:00 03/20/20 19:01 Sod Chlor 0.9% 1000ml Bag IV 03/20/20 20:00 999 mls/hr .Q1H1M NANNETTE Administration Sodium Chloride 1,000 mls @ 999 mls/hr 03/20/20 19:15 03/20/20 19:36 Sod Chlor 0.9% 1000ml Bag IV 03/20/20 20:15 999 mls/hr .Q1H1M NANNETTE Administration Sodium Chloride 10 ml 03/20/20 18:58 Sodium Chloride 0.9% 10ml Vial IV 04/19/20 18:57 NEEDED PRN to Dilute Lorazepam inj Discontinued Medications Generic Name Dose Route Start Last Admin Trade Name Freq PRN Reason Stop Dose
[2020-03-20 18:55] LABS: Microscopic, Urine URINE MICROSCOPIC (MICROSCOPIC)
[2020-03-20 18:59] LABS: Appearance,Urine CLEAR (Clear); Bilirubin,Urine Negative (Negative); Blood, Urine Negative (Negative); Color,Urine YELLOW (Yellow); Glucose,Urine (UA) Negative (Negative); Ketones,Urine TRACE (Negative); Leukocyte Esterase,Urine Negative (Negative); Nitrate,Urine Negative (Negative); PH,Urine 5.5 (5.0-8.5); Protein,Urine Negative (Negative); Specific Gravity, Urine >= 1.030 (1.005-1.030); Urobilinogen,Urine 0.2 EU/dl (0.2)
--- NOTE | 2020-03-20 18:59 | PC.NURSE ---
Verified with Cody from pharmacy for keppra and depakote dosage
[2020-03-20 19:02] LABS: Basophils # 0.1 K/mm3 (0-0.2); Basophils % 1.4 % (0.1-2.0); Eosinophils # 0.3 K/mm3 (0.0-0.4); Eosinophils % 2.9 % (0.1-12.0); Hematocrit 45.6 % (37.0-47.0); Lymphocytes # 3.8 K/mm3 (0.7-4.5); Mean Corpuscular HGB Conc 32.9 g/dL (31.8-35.4); Mean Corpuscular Volume 94.2 fl (81-99); Mean Platelet Volume 7.1 fl (7.4-10.4); Monocytes # 0.5 K/mm3 (0.1-1.0); Monocytes % 5.5 % (1.7-9.3); Neutrophils # 4.8 K/mm3 (1.8-7.8); Neutrophils % 50.1 % (37.0-80.0); Platelet Count 305 K/mm3 (142-424); Red Blood Count 4.84 M/mm3 (4.20-5.40); Red Cell Distribution Width 13.5 % (11.5-17.5); Urine Pregnancy, HCG Qual. Negative (Negative); White Blood Count 9.5 K/mm3 (4.8-10.8)
[2020-03-20 19:04] LABS: Amorphous Sediment,Urine Trace /lpf; Mucus,Urine 1+ /lpf; Squamous Epithelial Cell,Urine Occasional #/hpf (0-5)
[2020-03-20 19:06] LABS: Anion Gap 20.4 mEq/L (5-15); Blood Urea Nitrogen 18 mg/dl (7-17); Carbon Dioxide 28 mmol/L (22.0-30.0); Chloride 91 mmol/L (98-107); Creatinine Clearance Estimated 49 mL/min (50-200); Estimated Glomerular Filt Rate 35 ml/min (>60); GFR (African American) 42 ML/MIN (>60); Glucose 101 mg/dl (74-100); Potassium 3.4 mmoL/L (3.5-5.1); Sodium 136 mmol/L (136-145)
[2020-03-20 19:08] LABS: Ethyl Alcohol < 10 mg/dl (0-10)
[2020-03-20 19:09] LABS: Barbiturates Screen,Urine Negative ng/ml (<200)
[2020-03-20 19:10] LABS: Amphetamine/Metha Screen,Urine Negative ng/ml (<1000); Benzodiazepines Screen,Urine Negative ng/ml (<200)
[2020-03-20 19:11] LABS: Cannabinoid Screen,Urine Negative ng/ml (<50)
[2020-03-20 19:12] LABS: Cocaine Screen,Urine Positive ng/ml (<300); Methadone Screen,Urine Negative ng/ml (<300)
[2020-03-20 19:13] LABS: Opiate Screen,Urine Positive ng/ml (<300)
[2020-03-20 19:14] LABS: Phencyclidine Screen,Urine Negative ng/ml (<25)
[2020-03-20 20:06] VITALS: BP 135/85; PULSE 81; RESP 12; TEMP 37.2; O2SAT 100
--- NOTE | 2020-03-20 20:09 | PC.NURSE ---
Pt has $628 weaver at bedside, weaver was counted by myself and Calvin Zarate sealed in envelope and placed in weaver box in admissions
--- NOTE | 2020-03-20 21:20 | PC.NURSE ---
spoke with pt mother about picking her up. she gave daughter cell phone number to this nurse to contact.
--- NOTE | 2020-03-20 21:22 | PC.NURSE ---
spoke with pt daughter who said she will come pick her up
--- NOTE | 2020-03-20 21:30 | PC.NURSE ---
pt was picking up things and saying she was leaving. pt instructed to stay in her room till her daughter came to pick her up or the customer response representative would be called since pt in under the influence.
--- NOTE | 2020-03-20 21:35 | PC.NURSE ---
pt was found smoking in pt room. when asked to put it out pt became agitated and refused. dispatched called to send officer.
--- NOTE | 2020-03-20 21:42 | PC.NURSE ---
pt walked out to car with this nurse and officers. pts daughter was given the pts money she had with her on arrival. this nurse let pts daughter open the envelope and count the money. the daughter confirmed the correct amount in the envelope. pt had also asked about her phone. no phone was noted on arrival in pt belongings. this nurse asked the daughter about a phone and she stated the pt left the phone at her nan house.
[2020-03-20 22:07] VITALS: BP 138/70; PULSE 86; RESP 14; TEMP 37.2; O2SAT 99
== END 2020-03-20 22:10 | disposition home or self-care (01) ==
PROVIDERS: Emergency Provider Emergency Medicine
DX: E86.0 Dehydration (principal); G40.909 Epilepsy, unspecified, not intractable, without status epilepticus; F14.10 Cocaine abuse, uncomplicated; F11.10 Opioid abuse, uncomplicated; Z79.899 Other long term (current) drug therapy; F33.1 Major depressive disorder, recurrent, moderate; Z88.6 Allergy status to analgesic agent; Z88.8 Allergy status to other drugs, medicaments and biological substances
CPT/HCPCS: 80048; 80305; 81001; 81025; 85025; 96365; 96366; 96367; 96375; 99283; 99284; J1953

== ENCOUNTER 2020-03-28 18:55 | Emergency (ER) | payer OTHER, BC, SELFPAY ==
[2020-03-28] VITALS (11 sets, daily range): BP systolic 119–149; BP diastolic 69–102; PULSE 84–113; RESP 16–22; TEMP 36.1–37.1; O2SAT 96–100; BMI 43.3; BMI 36.2
--- NOTE | 2020-03-28 18:57 | ECG_ITS ---
APPROVED REPORT Exam: Resting ECG HR:115 bpm ECG Measurements Heart Rate 115 AXES FL 138 P 61 QRSd 72 QRS 40 QT 338 T 57 QTc 467 <Conclusion> Sinus tachycardia Nonspecific ST abnormality Abnormal ECG Electronically signed by : Dejan Davis, 03/29/2020 13:14:38
--- NOTE | 2020-03-28 19:00 | PC.NURSE ---
pt unresponsive to painful stimuli. ammonia inhalant used. some moaning and groaning noted.
--- NOTE | 2020-03-28 19:10 | XR_ITS ---
PROCEDURE: XR PELVIS 1-2V CLINICAL INDICATION: ams Posttraumatic pain COMPARISON: HIPCMLT XR hip LT 2-3V w/pelvis from 07/08/2018 TECHNIQUE: XR Pelvis AP View FINDINGS: Limited exam, under penetrated No definite acute fracture or dislocation. There is an ununited apophysis at the greater trochanter on both sides. No lytic or blastic change. IMPRESSION: No acute findings. Dictated by: Kyle Benítez MD 03/28/2020 21:35 Electronically signed by Kyle Benítez MD in [place] 03/28/2020 21:35
--- NOTE | 2020-03-28 19:10 | XR_ITS ---
PROCEDURE: XR CHEST PORTABLE CLINICAL HISTORY: ams Respiratory failure, evaluate endotracheal tube placement COMPARISON: CXR CHEST(2 VIEWS-NOT PORTABLE) from 03/25/2015 CTAC CTA-CHEST from 05/24/2017 CXR2V XR chest 2V from 07/03/2018 XR CHEST PORTABLE from 03/08/2020 FINDINGS: Endotracheal tube tip is in good position 5.4 cm above the neymar. Nasogastric tube is present with the tip not visible on the film but below the diaphragm. Mild cardiomegaly without failure. The lungs are clear without infiltrates, suspicious nodules, or pleural effusions. No acute bony abnormalities. IMPRESSION: Good position of endotracheal tube and nasogastric tube with mild cardiomegaly Dictated by: Kyle Benítez MD 03/28/2020 21:36 Electronically signed by Kyle Benítez MD in [place] 03/28/2020 21:36
--- NOTE | 2020-03-28 19:30 | PC.NURSE ---
propofol at 4mcg.
[2020-03-28 19:40] LABS: Microscopic, Urine URINE MICROSCOPIC (MICROSCOPIC)
--- NOTE | 2020-03-28 19:40 | PC.NURSE ---
propofol incr to 8 mcg.
[2020-03-28 19:44] LABS: Basophils % 0.4 % (0.1-2.0); Eosinophils # 0.3 K/mm3 (0.0-0.4); Hemoglobin 15.3 g/dL (12.2-16.2); Lymphocytes # 2.3 K/mm3 (0.7-4.5); Lymphocytes % 35.7 % (10-50); Mean Corpuscular HGB Conc 33.2 g/dL (31.8-35.4); Mean Corpuscular Volume 93.4 fl (81-99); Mean Platelet Volume 7.1 fl (7.4-10.4); Monocytes # 0.3 K/mm3 (0.1-1.0); Monocytes % 4.2 % (1.7-9.3); Neutrophils # 3.7 K/mm3 (1.8-7.8); Neutrophils % 55.6 % (37.0-80.0); Platelet Count 278 K/mm3 (142-424); Red Blood Count 4.93 M/mm3 (4.20-5.40); Red Cell Distribution Width 13.9 % (11.5-17.5); White Blood Count 6.6 K/mm3 (4.8-10.8)
[2020-03-28 19:45] LABS: Chloride 101 mmol/L (98-107); Potassium 3.9 mmoL/L (3.5-5.1); Sodium 139 mmol/L (136-145)
[2020-03-28 19:48] LABS: Alanine Aminotransferase 23 U/L (12-78); Albumin Level 4.8 g/dl (3.5-5.0); Albumin/Globulin Ratio 1.3 (1.1-1.8); Alkaline Phosphatase 62 U/L (38-126); Anion Gap 19.9 mEq/L (5-15); Aspartate Amino Transferase 43 U/L (14-36); Bilirubin,Total 0.6 mg/dl (0.2-1.3); Blood Urea Nitrogen 13 mg/dl (7-17); Carbon Dioxide 22 mmol/L (22.0-30.0); Creatinine Clearance Estimated 111 mL/min (50-200); Estimated Glomerular Filt Rate 49 ml/min (>60); GFR (African American) 59 ML/MIN (>60); Globulin 3.7 g/dL (1.3-3.2); Glucose 99 mg/dl (74-100); Total Protein,Serum 8.5 g/dl (6.3-8.2)
[2020-03-28 19:49] LABS: Acetaminophen < 10 ug/ml (10-30); Salicylate < 1.0 mg/dL (2.0-20.0)
[2020-03-28 19:50] LABS: Ethyl Alcohol < 10 mg/dl (0-10)
[2020-03-28 19:53] LABS: Appearance,Urine CLEAR (Clear); Bilirubin,Urine Negative (Negative); Blood, Urine Negative (Negative); Color,Urine YELLOW (Yellow); Glucose,Urine (UA) Negative (Negative); Ketones,Urine Negative (Negative); Leukocyte Esterase,Urine Negative (Negative); Nitrate,Urine Negative (Negative); PH,Urine 5.5 (5.0-8.5); Protein,Urine Negative (Negative); Specific Gravity, Urine 1.015 (1.005-1.030); Urobilinogen,Urine 0.2 EU/dl (0.2)
[2020-03-28 19:55] LABS: Bacteria,Urine Trace /lpf; Squamous Epithelial Cell,Urine Occasional #/hpf (0-5); WBC,Urine Occasional #/hpf (0-3)
[2020-03-28 20:00] LABS: ABG Base Excess -1.8 mmol/L (-2.4-2.3); ABG Oxygen Saturation 98 % (90-100); ABG PCO2 45.1 mmhg (35.0-45.0); ABG PH 7.34 mmol/L (7.35-7.45); ABG PO2 130.4 mmhg (80-100); ABG TCO2 25.3 mmhg (23-27)
[2020-03-28 20:01] LABS: Amphetamine/Metha Screen,Urine Negative ng/ml (<1000); Benzodiazepines Screen,Urine Negative ng/ml (<200); Oxygen 60 %; Source Right Brachial
[2020-03-28 20:02] LABS: Barbiturates Screen,Urine Negative ng/ml (<200)
[2020-03-28 20:03] LABS: Cannabinoid Screen,Urine Negative ng/ml (<50); Cocaine Screen,Urine Positive ng/ml (<300)
[2020-03-28 20:04] LABS: Methadone Screen,Urine Negative ng/ml (<300)
--- NOTE | 2020-03-28 20:04 | PC.NURSE ---
13 mcg of propofol at this time
[2020-03-28 20:05] LABS: Opiate Screen,Urine Positive ng/ml (<300); Phencyclidine Screen,Urine Negative ng/ml (<25)
--- NOTE | 2020-03-28 20:10 | PC.NURSE ---
prop incr to [facility]
[2020-03-28 20:11] LABS: Valproic Acid, (Depakene) 85.5 ug/ml (50-100)
--- NOTE | 2020-03-28 20:14 | PC.NURSE ---
propofol incr 21 mcg
--- NOTE | 2020-03-28 20:20 | PC.NURSE ---
increased to 25 mcg, propofol
--- NOTE | 2020-03-28 20:26 | PC.NURSE ---
incr propofol to 29 mcg
--- NOTE | 2020-03-28 20:26 | PC.NURSE ---
RT weaned FIO2 to 40% per verbal MD
--- NOTE | 2020-03-28 20:30 | HMH.EDGENADL ---
ED Disposition Clinical Impression: Status epilepticus Disposition: Xfer Short-Term Hosp Condition on Discharge: Fair Instructions: DI for Altered Mental Status Referrals: Provider,Referral, [Referring] - - Critical Care Critical Care Time: Yes Attestation: On 03/28/20, the high probability of a clinically significant, sudden or life threatening deterioration of the following system(s) required my full and direct attention, intervention and personal management. The time I documented below is in addition to time spent performing reported procedures but includes the following listed in this critical care notation. Vital system(s) involved:: Circulatory Failure, Central Nervous System, Respiratory Failure My critical care processes included: Assessment & monitoring of V/S, Initial and Re-exams, Data Review/Interpretation, Coordinating Care, Medication Orders and management, Documentation Medical Decision Making - Tristan Inquiry Pt receiving controlled substance: No Tristan was queried for this patient: No Vital Signs: 03/28/20 19:00 03/28/20 19:07 Temperature 98.7 F Temperature Source Oral Pulse Rate [Right Brachial] 106 H Respiratory Rate 18 Blood Pressure [Right Arm] 149/88 H Blood Pressure Mean [Right Arm] 108 Blood Pressure Source [Right Arm] Automatic Cuff Blood Pressure Position [Right Arm] Sitting 02 Sat by Pulse Oximetry 98 98 Oxygen Delivery Method Room Air Mechanical Ventilation - Lab Data Lab Results 03/28/20 19:10: Urine Color Yellow, Urine Appearance Clear, Urine pH 5.5, Ur Specific [place] 1.015, Urine Protein Negative, Urine Glucose (UA) Negative, Urine Ketones Negative, Urine Blood Negative, Urine Nitrate Negative, Urine Bilirubin Negative, Urine Urobilinogen 0.2, Ur Leukocyte Esterase Negative, Urine WBC Occasional, Ur Squamous Epith Cells Occasional, Urine Bacteria Trace 03/28/20 19:10: Specimen Source Right brachial, O2 % 60, ABG pH 7.34 L, ABG pCO2 45.1 H, ABG pO2 130.4 H, ABG HCO3 24.0, ABG Total CO2 25.3, ABG O2 Saturation 98, ABG Base Excess -1.8 03/28/20 19:10: WBC 6.6, RBC 4.93, Hgb 15.3, Hct 46.0, MCV 93.4, MCH 31.0, MCHC 33.2, RDW 13.9, Plt Count 278, MPV 7.1 L, Neut % (Auto) 55.6, Lymph % (Auto) 35.7, [place] % (Auto) 4.2, Eos % (Auto) 4.0, Baso % (Auto) 0.4, Neut # (Auto) 3.7, Lymph # (Auto) 2.3, [place] # (Auto) 0.3, Eos # (Auto) 0.3, Baso # (Auto) 0.0 03/28/20 19:10: Sodium 139, Potassium 3.9, Chloride 101, Carbon Dioxide 22, Anion Gap 19.9 H, BUN 13, Creatinine 1.20 H, Estimated Creat Clear 111, Estimated GFR 49 L, Est GFR ( Amer) 59, Glucose 99, Calcium 10.0, Total Bilirubin 0.6, AST 43 H, ALT 23, Alkaline Phosphatase 62, Total Protein 8.5 H, Albumin 4.8, Globulin 3.7 H, Albumin/Globulin Ratio 1.3, Salicylates < 1.0 L, Acetaminophen < 10 L, Total Valproic Acid 85.5 03/28/20 19:10: Urine Opiates Screen Positive H, Urine Methadone Screen Negative, Ur Barbituates Screen Negative, Ur Phencyclidine Scrn Negative, Ur Amphetamines Screen Negative, U Benzodiazepines Scrn Negative, Urine Cocaine Screen Positive H, U Marijuana (THC) Screen Negative 03/28/20 19:10: Plasma/Serum Alcohol < 10 Result diagrams: 03/28/20 19:10 03/28/20 19:10 Orders (Tests/Meds): ED MEDICATIONS Discontinued Medications Generic Name Dose Route Start Last Admin Trade Name Freq PRN Reason Stop Dose Admin Levetiracetam 2,000 mg/ Sodium 120 mls @ 240 mls/hr 03/28/20 21:24 Chloride IV 03/28/20 21:25 ONCE ONE ORDERS Category Date Time Status CT cervical spine wo con Stat Cat Scan 03/28/20 19:[address] head/brain wo con Stat Cat Scan 03/28/20 19:10 Ordered XR chest portable Stat Exams 03/28/20 19:10 Taken XR pelvis 1-2V Stat Exams 03/28/20 19:10 Taken Levetiracetam (Keppra) Stat Lab 03/28/20 19:10 Received Medical Decision Narrative: Number he patient is acutely altered 44-year-old female presenting to the emergency department for evaluation of altered mental status,
--- NOTE | 2020-03-28 20:35 | PC.NURSE ---
received call back from dr durbin who states dr doll would feel more comfortable if it ws transferred
--- NOTE | 2020-03-28 20:37 | PC.NURSE ---
engine house helper on phone with mandaen at this time.
--- NOTE | 2020-03-28 21:01 | PC.NURSE ---
[facility]pt put on waiting list .is 4th on list at this time
--- NOTE | 2020-03-28 21:03 | PC.NURSE ---
2040 spoke with territory sales representative at [facility]...no beds available
--- NOTE | 2020-03-28 21:05 | PC.NURSE ---
spoke with transfer center at [facility] at [phone] .lanette at transfer center at [phone] ,stated should have bed at . will return call with further information
--- NOTE | 2020-03-28 21:14 | PC.NURSE ---
2112 DR MARTIN ON PHONE WITH [employer] OF .
--- NOTE | 2020-03-28 21:16 | PC.NURSE ---
[id number] DR JONES ON PHONE SPEAKING WITH DR HUERTAS OF
--- NOTE | 2020-03-28 22:09 | PC.NURSE ---
lanette received call that helicopter will be here in 20 minutes
--- NOTE | 2020-03-28 22:35 | PC.NURSE ---
report given to nurse, Lizeth. faxed er note to [facility] per her request. care given to [facility] at this time. pt remains vss. emv 9. no obvious distress noted.
--- NOTE | 2020-03-29 00:30 | PC.NURSE ---
family updated on status of transfer at this time per their previous request. no further questions offered.
[2020-04-02 06:50] LABS: Levetiracetam (Keppra) <1.0 ug/mL (10.0-40.0)
[2020-04-20 14:48] LABS: POC Glucose,Bedside 123 (70-110)
== END 2020-03-28 23:42 | disposition short-term general hospital (02) ==
PROVIDERS: Emergency Provider Emergency Medicine; PCP Family Medicine
DX: G40.901 Epilepsy, unspecified, not intractable, with status epilepticus (principal); G43.709 Chronic migraine without aura, not intractable, without status migrainosus; F43.12 Post-traumatic stress disorder, chronic; F17.210 Nicotine dependence, cigarettes, uncomplicated; F19.10 Other psychoactive substance abuse, uncomplicated; F14.10 Cocaine abuse, uncomplicated; Z88.8 Allergy status to other drugs, medicaments and biological substances; Z79.899 Other long term (current) drug therapy; Z88.6 Allergy status to analgesic agent
CPT/HCPCS: 31500; 71045; 72170; 80053; 80164; 80177; 80305; 80329; 81001; 82803; 82962; 85025; 93005; 96365; 96366; 96367; 96375; 96376; 99285; J1953; J2704

== ENCOUNTER 2020-06-24 18:57 | Emergency (ER) | payer OTHER, SELFPAY ==
[2020-06-24 19:18] VITALS: BP 149/88; PULSE 79; RESP 18; TEMP 36.8; O2SAT 98; BMI 37.0
--- NOTE | 2020-06-24 19:30 | HMH.EDUTC ---
[facility] [place] Clinical Impression: Sinusitis Qualifiers: Sinusitis location: unspecified location Chronicity: unspecified Qualified Code(s): J32.9 - Chronic sinusitis, unspecified Disposition: Home, Self-Care Condition on Discharge: Good Instructions: Sinusitis, Sinus Headache, DI for Sinusitis, Azithromycin Additional Instructions: *Monitor Temp, Over the counter Motrin or Tylenol as directed/as needed Tylenol every 4 hours and Motrin every 6 hours (as long as your family doctor has told you that you can take it) for fever or pain. and straight to ER if unable to lower temp less than 101.0 after medication given *Warm salt water gargles may help to soothe the throat *Throat Lozenges *Warm fluids like tea with honey may help to soothe the throat *Sleep elevated *Humidifier/Vaporizer *Flonase 2 sprays in each nostril daily but be aware that it may take 2-3 days before you notice improvement Take medication as prescribed Use inhaler as prescribed You was tested for COVID today in the clinic, make sure to call back to the [facility] on Saturday to see if your test results are back and the result,. while waiting for your test results you was given handout with instructions for Self Quarantine while waiting your results and self isolation if they are positive Follow up IMMEDIATELY for new or worsening symptoms or no Noticeable improvement over the next 48-72 hours. 911 for difficulty breathing or swallowing Prescriptions: Fluticasone Propionate [Flonase 50mcg nasal spray 16gm] 1 spr NS DAILY #1 bottle Prescription Printed Azithromycin [Z-Florentino 250mg Tab] 250 mg PO DIRECTED #6 tab Prescription Printed Referrals: Tere Jackson APRN [Primary Care Provider] - As needed Time of Disposition: 19:39 Medical Decision Making - Tristan Inquiry Pt receiving controlled substance: No Tristan was queried for this patient: No Vital Signs: 06/24/20 19:18 Temperature 98.2 F Temperature Source Oral Pulse Rate [Right Brachial] 79 Respiratory Rate 18 Blood Pressure [Left Arm] 149/88 H Blood Pressure Mean [Left Arm] 108 Blood Pressure Source [Left Arm] Automatic Cuff Blood Pressure Position [Left Arm] Sitting 02 Sat by Pulse Oximetry 98 Oxygen Delivery Method Room Air Orders (Tests/Meds): ORDERS Category Date Time Status Covid-19 Nasal PCR Sendout Stat Lab 06/24/20 19:18 Received [facility] - General Stated complaint: out of breath coughing fatigued covid exposure Time Seen by Provider: 06/24/20 19:30 Mode of Arrival: Ambulatory Source of Information: Patient Limitations: No Limitations Description of Symptoms (Recalled from Triage Doc. by RN): PATIENT C/O SOA AND COUGH X 2 DAYS, REPORTS COVID EXPOSURE HEENT Symptoms (Recalled from RN notes): No Resp Symptoms (Recalled from RN notes): Yes Skin Symptoms (Recalled from RN notes): No MS Symptoms (Recalled from RN notes): No Functional Status (Recalled from RN notes): WNL - History of Present Illness Provider Complaint: Patient states that he mother was recently dx with COVID States that she has been having sinus pain and pressure along with sore throat, cough and at times feeling like she cant get a good breath States that she is having drainage from her nose in the back of her throat and making her cough. State that she come in to get checked for COVID and get something for her sinuses - Related Data Home Medications Medication Instructions Recorded Confirmed Albuterol Sulfate [Albuterol 2 puffs IH Q6HP PRN 03/09/20 03/20/20 Sulfate Hfa] Buspirone HCl [Buspar 10mg 10 mg PO TID 03/09/20 03/20/20 tablet] Dicyclomine HCl [Bentyl 10mg 10 mg PO Q8HP PRN 03/09/20 03/20/20 capsule] Divalproex Sodium [Divalproex 500 mg PO TID 03/09/20 03/20/20 Sodium ER] Duloxetine HCl 30 mg PO HS 03/09/20 03/20/20 Furosemide [Lasix 20mg tablet] 20 mg PO BIDL 03/09/20 03/20/20 Gabapentin 300 mg PO BID 03/09/20 03/20/20 Levothyroxine Sodium 200 mcg PO DAILY 03/09/20
[2020-06-24 19:41] VITALS: BP 149/88; PULSE 79; RESP 18; TEMP 36.8; O2SAT 98
[2020-06-26 09:20] LABS: Covid-19 Nasal PCR Sendout UK Not Detected
== END 2020-06-24 19:43 | disposition home or self-care (01) ==
PROVIDERS: Emergency Provider Nurse Practitioner; PCP Nurse Practitioner
DX: J32.9 Chronic sinusitis, unspecified (principal); Z20.828 Contact with and (suspected) exposure to other viral communicable diseases; G40.909 Epilepsy, unspecified, not intractable, without status epilepticus; G43.709 Chronic migraine without aura, not intractable, without status migrainosus; Z79.899 Other long term (current) drug therapy; Z90.710 Acquired absence of both cervix and uterus; Z90.49 Acquired absence of other specified parts of digestive tract; F17.210 Nicotine dependence, cigarettes, uncomplicated
CPT/HCPCS: 99201; U0003

== ENCOUNTER 2020-06-25 10:34 | Emergency (ER) | payer OTHER, SELFPAY ==
[2020-06-25 10:36] VITALS: BP 124/84; PULSE 89; RESP 12; TEMP 37.6; O2SAT 92; BMI 41.1
--- NOTE | 2020-06-25 10:40 | HMH.EDSEIZ ---
ED Disposition Clinical Impression: Generalized seizure Disposition: Home, Self-Care Condition on Discharge: Good Instructions: DI for Seizure Disorder -- Adult Referrals: Tere Jackson APRN [Primary Care Provider] - 3 days - Critical Care Critical Care Time: No Attestation: On 06/25/20, the high probability of a clinically significant, sudden or life threatening deterioration of the following system(s) required my full and direct attention, intervention and personal management. The time I documented below is in addition to time spent performing reported procedures but includes the following listed in this critical care notation. Medical Decision Making - Medical Records Medical records reviewed: Yes: I reviewed the patient's medical records. - Tristan Inquiry Pt receiving controlled substance: No Vital Signs: 06/25/20 10:36 Temperature 99.7 F H Temperature Source Oral Pulse Rate [Right] 89 Respiratory Rate 12 Blood Pressure [Right Arm] 124/84 Blood Pressure Mean [Right Arm] 97 02 Sat by Pulse Oximetry 92 L Orders (Tests/Meds): ED MEDICATIONS Discontinued Medications Generic Name Dose Route Start Last Admin Trade Name Mega PRN Reason Stop Dose Admin Divalproex Sodium 500 mg 06/25/20 11:11 Depakote (Delayed Release) 500mg Tab PO 06/25/20 11:12 ONCE STA Levetiracetam 1,000 mg/ Sodium 110 mls @ 220 mls/hr 06/25/20 10:57 06/25/20 11:09 Chloride IV 06/25/20 10:58 220 mls/hr ONCE ONE Administration Medical Decision Narrative: Patient here with tongue abrasions and seizure at home secondary to not taking her medications which she has been known for her noncompliance in the past. She is loaded with IV Keppra here, given Depakote and oxcarbamazepine which she takes at home. Fingerstick 124. Denies any acute illnesses. Discharged home with advised to remain compliant with her seizure medications. Seizures HPI - General Stated Complaint: seizures Time Seen by Provider: 06/25/20 10:35 Mode of Arrival: EMS Source of Information: Patient, EMS, Medical Record Limitations: No Limitations - History of Present Illness HPI Narrative: This is a 44-year-old polysubstance abuser with a history of seizure disorder who presents to the emergency department for evaluation of seizure noticed this morning by family that lasted for approximately 30 seconds at around 8 AM. She has been somnolent per EMS, but easily arousable and answering questions appropriately. Patient admits she has not been taking her Keppra and Depakote. She denies any recent illnesses including no fevers, vomiting, diarrhea, urinary symptoms. She thinks that she bit her tongue, but otherwise denies any pain. - Related Data Home Medications Medication Instructions Recorded Confirmed Albuterol Sulfate [Albuterol 2 puffs IH Q6HP PRN 03/09/20 03/20/20 Sulfate Hfa] Buspirone HCl [Buspar 10mg 10 mg PO TID 03/09/20 03/20/20 tablet] Dicyclomine HCl [Bentyl 10mg 10 mg PO Q8HP PRN 03/09/20 03/20/20 capsule] Divalproex Sodium [Divalproex 500 mg PO TID 03/09/20 03/20/20 Sodium ER] Duloxetine HCl 30 mg PO HS 03/09/20 03/20/20 Furosemide [Lasix 20mg tablet] 20 mg PO BIDL 03/09/20 03/20/20 Gabapentin 300 mg PO BID 03/09/20 03/20/20 Levothyroxine Sodium 200 mcg PO DAILY 03/09/20 03/20/20 [Levothyroxine 200mcg (0.2mg) Tab] Loperamide HCl [Loperamide] 4 mg PO Q5MINP PRN 03/09/20 03/20/20 Multivit-Min/Iron/Folic/Lutein 1 each PO DAILY 03/09/20 03/20/20 [Centrum Silver Women Tablet] OXcarbazepine [Oxcarbazepine] 150 mg PO BID 03/09/20 03/20/20 Potassium Chloride [Micro-K 10mEq 20 meq PO DAILY 03/09/20 03/20/20 cap] Prazosin HCl [Minipres 1mg capsule] 1 mg PO HS 03/09/20 03/20/20 Quetiapine Fumarate 100 mg PO DAILY 03/09/20 03/20/20 Quetiapine Fumarate 200 mg PO HS 03/09/20 03/20/20 Spironolactone 100 mg PO DAILY 03/09/20 03/20/20 Tizanidine HCl 4 mg PO TIDP PRN 03/09/20 03/20/20 Trazodone HC
[2020-06-25 12:28] VITALS: BP 122/85; PULSE 80; RESP 18; TEMP 36.8; O2SAT 95
== END 2020-06-25 12:28 | disposition home or self-care (01) ==
PROVIDERS: Emergency Provider Emergency Medicine; PCP Nurse Practitioner
DX: G40.901 Epilepsy, unspecified, not intractable, with status epilepticus (principal); G43.709 Chronic migraine without aura, not intractable, without status migrainosus; Z79.899 Other long term (current) drug therapy; F17.210 Nicotine dependence, cigarettes, uncomplicated; F19.90 Other psychoactive substance use, unspecified, uncomplicated; Z90.49 Acquired absence of other specified parts of digestive tract; Z90.710 Acquired absence of both cervix and uterus; Z88.6 Allergy status to analgesic agent; Z88.8 Allergy status to other drugs, medicaments and biological substances
CPT/HCPCS: 96365; 96367; 99281; J1953

== ENCOUNTER 2020-08-02 13:58 | Emergency (ER) | payer OTHER, SELFPAY ==
[2020-08-02 14:28] VITALS: BP 141/72; PULSE 68; RESP 19; TEMP 36.6; O2SAT 97; BMI 36.5
--- NOTE | 2020-08-02 14:43 | HMH.EDUTC ---
[facility] [facility] [place] Clinical Impression: URI (upper respiratory infection) Qualifiers: URI type: unspecified URI Qualified Code(s): J06.9 - Acute upper respiratory infection, unspecified Cellulitis Qualifiers: Site of cellulitis: other site Qualified Code(s): L03.818 - Cellulitis of other sites Disposition: Home, Self-Care Condition on Discharge: Good Instructions: Cellulitis, Yeast Infection-Skin, Sore Throat, DI for Nasal Congestion Additional Instructions: Take medication as prescribed Follow up with Family Doctor for further treatment and evaluation FOllow up in the next 48 hours for your wound culture results Return if needed Straight to ER if any life threatening symptoms Prescriptions: Albuterol Sulfate [Proventil-HFA 90mcg/puff Inh] 1 - 2 puffs IH Q4HP PRN #1 inh PRN Reason: Shortness Of Breath Transmission Status: Pending to [facility] cephALEXin [Keflex 500mg Cap] 500 mg PO QID 10 Days #40 cap Transmission Status: Pending to Clinic [facility] Nystatin [Nystatin Cr 100,000 Units/GM 30GM] 1 applicatio TOPICAL TID #1 tube Transmission Status: Pending to Clinic [facility] Referrals: Tere Jackson APRN [Primary Care Provider] - Time of Disposition: 15:00 Medical Decision Making - Tristan Inquiry Pt receiving controlled substance: No Tristan was queried for this patient: No Vital Signs: 08/02/20 14:28 Temperature 97.8 F Temperature Source Oral Pulse Rate [Right Brachial] 68 Respiratory Rate 19 Blood Pressure [Right Arm] 141/72 H Blood Pressure Mean [Right Arm] 95 Blood Pressure Source [Right Arm] Automatic Cuff Blood Pressure Position [Right Arm] Sitting 02 Sat by Pulse Oximetry 97 Oxygen Delivery Method Room Air Orders (Tests/Meds): ORDERS Category Date Time Status Wound Culture and Gram Stain Stat Micro 08/02/20 14:30 Ordered Medical Decision Narrative: Discussed with patient that she needed to call her PCP and make appointment for follow up and further treatment for wound on right groin area to make sure that she is on correct antibiotic and that it is healing properly Medication discussed with [place] [facility] [place] - General Stated complaint: cough and cyst on thigh Time Seen by Provider: 08/02/20 14:43 Mode of Arrival: Ambulatory Source of Information: Patient Limitations: No Limitations Description of Symptoms (Recalled from Triage Doc. by RN): PATIENT C/O COUGH, SOA, AND CYST TO RIGHT THIGH WITH DRAINAGE X 3 DAYS HEENT Symptoms (Recalled from RN notes): No Resp Symptoms (Recalled from RN notes): Yes Skin Symptoms (Recalled from RN notes): Yes MS Symptoms (Recalled from RN notes): No Functional Status (Recalled from RN notes): WNL - History of Present Illness Provider Complaint: Patient states that she has been having cough, sinus pain and pressure along with drainage and feeling like it is moving into her chest States that she was seen and dx with sinusitis about a month ago but family took her medication and she didnt get to finish it States that also she has an area where she had lymph node removed in her right groin area and she noticed it was looking red and starting to have some drainage from it and she was worried that it was re-opening and foul odor to the drainage - Related Data Home Medications Medication Instructions Recorded Confirmed Albuterol Sulfate [Albuterol 2 puffs IH Q6HP PRN 03/09/20 03/20/20 Sulfate Hfa] Buspirone HCl [Buspar 10mg 10 mg PO TID 03/09/20 03/20/20 tablet] Dicyclomine HCl [Bentyl 10mg 10 mg PO Q8HP PRN 03/09/20 03/20/20 capsule] Divalproex Sodium [Divalproex 500 mg PO TID 03/09/20 03/20/20 Sodium ER] Duloxetine HCl 30 mg PO HS 03/09/20 03/20/20 Furosemide [Lasix 20mg tablet] 20 mg PO BIDL 03/09/20 03/20/20 Gabapentin 300 mg PO BID 03/09/20 03/20/20 Levothyroxine Sodium 200 mcg PO DAILY 03/09/20 03/20/20 [Levothyroxine 200mcg (0.2mg) Tab] Loperamide HCl [Loperamide] 4 mg PO Q5MINP PRN 03/09/2002/20
[2020-08-02 15:04] VITALS: BP 141/72; PULSE 68; RESP 19; TEMP 36.6; O2SAT 97
== END 2020-08-02 15:06 | disposition home or self-care (01) ==
PROVIDERS: Emergency Provider Nurse Practitioner; PCP Nurse Practitioner
DX: J06.9 Acute upper respiratory infection, unspecified (principal); L03.115 Cellulitis of right lower limb; G43.709 Chronic migraine without aura, not intractable, without status migrainosus; G40.909 Epilepsy, unspecified, not intractable, without status epilepticus; F41.8 Other specified anxiety disorders; F43.12 Post-traumatic stress disorder, chronic; F17.210 Nicotine dependence, cigarettes, uncomplicated; Z79.899 Other long term (current) drug therapy; Z88.8 Allergy status to other drugs, medicaments and biological substances
CPT/HCPCS: 87070; 87077; 87186; 87205; 99201

== ENCOUNTER → 2020-09-01 11:10 | Outpatient (CLI) | payer OTHER, SELFPAY ==
--- NOTE | 2020-09-01 11:16 | XR_ITS ---
PROCEDURE: XR KNEE LT 3V CLINICAL INDICATION: KNEE EFFUSION LT, EDEMA COMPARISON: No exams were available for comparison FINDINGS: No fracture or dislocation. No lytic or blastic change. There is normal mineralization. The joint spaces are well-preserved. No significant degenerative/arthritic changes. No erosive changes evident. Other findings:There is increased soft tissue density in the suprapatellar region suggesting small knee joint effusion. IMPRESSION: Small knee joint effusion otherwise negative Dictated by: Kyle Benítez MD 09/01/2020 17:21 Kyle Benítez MD in [place] 09/01/2020 17:21
== END ==
PROVIDERS: PCP Nurse Practitioner; Visit Provider Nurse Practitioner
DX: M25.462 Effusion, left knee (principal); R60.9 Edema, unspecified
CPT/HCPCS: 73562

== ENCOUNTER 2020-10-19 09:38 | Inpatient (IN) | payer OTHER, SELFPAY ==
[2020-10-19] VITALS (21 sets, daily range): BP systolic 98–128; BP diastolic 52–75; PULSE 60–96; RESP 12–20; TEMP 36.2–36.8; O2SAT 90–99; BMI 43.0; BMI 40.6
--- NOTE | 2020-10-19 09:41 | HMH.EDSEIZ ---
ED Disposition Clinical Impression: Seizure Pneumonia Qualifiers: Pneumonia type: due to unspecified organism Laterality: bilateral Lung location: lower lobe of lung Qualified Code(s): J18.9 - Pneumonia, unspecified organism Disposition: Admitted As Inpatient Condition on Discharge: Fair Instructions: Pneumonia-Adult, Seizure Disorder -- Adult Time of Disposition: 15:05 - Critical Care Critical Care Time: No Attestation: On , the high probability of a clinically significant, sudden or life threatening deterioration of the following system(s) required my full and direct attention, intervention and personal management. The time I documented below is in addition to time spent performing reported procedures but includes the following listed in this critical care notation. Medical Decision Making - Medical Records Medical records reviewed: Yes: I reviewed the patient's medical records. MR Comment: 45 year old Patient, female brought by EMS with a complaint of that she had seizures from about 4.30am; per her daughter she has a history of drug abuse. she also does have a history of seizure disorder but is sometimes noncompliant with her medications. Labs show WBC of 11.5 hemoglobin 16.1 hematocrit 52 platelets 265 electrolytes are essentially normal with a sodium of 138 potassium 4.6 ABG initially showed pH of 7.06 and a PCO2 of 126; after she was put on BiPAP it improved to pH of 7.22 and PCO2 of 74.6; urine analysis is negative; urine drug screen is negative; COVID-19 test is negative; CT head is negative; chest x-ray showed bilateral infiltrates with the possibility of COVID-19; CT of the cervical spine is negative; patient was given Ativan as well as Versed initially and this caused her seizures to stop; patient improved steadily with BiPAP spoke to Dr. Malik and he advised admission from chest x-ray it appears that it she has got bilateral infiltrates and we want to consider this as pneumonia will treat her with Rocephin and Zithromax and IV fluids; blood culture has also been ordered; family has been continuously updated on findings; per advice by from Dr. Malik we will also giving her Keppra 1000 mg IV now - Tristan Inquiry Pt receiving controlled substance: No Tristan was queried for this patient: No Vital Signs: 10/19/20 09:38 10/19/20 10:36 10/19/20 11:12 Temperature 97.1 F L Temperature Source Rectal Pulse Rate [Apical] 92 H 96 H 95 H Respiratory Rate 16 Blood Pressure [Left Arm] 107/56 L 128/72 125/60 Blood Pressure Mean [Left Arm] 73 90 81 Blood Pressure Source [Left Arm] Automatic Cuff Automatic Cuff Automatic Cuff Blood Pressure Position [Left Arm] Sitting Sitting Sitting 02 Sat by Pulse Oximetry 98 94 L 92 L Oxygen Delivery Method Non-Rebreather Non-Rebreather Non-Rebreather Oxygen Flow Rate (LPM) 15 15 15 10/19/20 11:32 10/19/20 12:05 10/19/20 12:30 Temperature Temperature Source Pulse Rate [Apical] 88 75 70 Respiratory Rate 20 Blood Pressure [Left Arm] 103/54 L 99/55 L 111/53 L Blood Pressure Mean [Left Arm] 70 69 72 Blood Pressure Source [Left Arm] Automatic Cuff Automatic Cuff Automatic Cuff Blood Pressure Position [Left Arm] Sitting Sitting Supine 02 Sat by Pulse Oximetry 90 L 91 L 91 L Oxygen Delivery Method BiPAP BiPAP BiPAP Oxygen Flow Rate (LPM) 10/19/20 12:59 10/19/20 14:05 Temperature Temperature Source Pulse Rate [Apical] 69 69 Respiratory Rate Blood Pressure [Left Arm] 98/52 L 109/64 L Blood Pressure Mean [Left Arm] 67 79 Blood Pressure Source [Left Arm] Automatic Cuff Automatic Cuff Blood Pressure Position [Left Arm] Sitting Sitting 02 Sat by Pulse Oximetry 94 L 99 Oxygen Delivery Method BiPAP BiPAP Oxygen Flow Rate (LPM) - Lab Data Lab results reviewed: Yes: I reviewed the patient's lab results. Lab Results 10/19/20 09:45: SARS-CoV-2 IgG Ab (Rapid) Negative, SARS-CoV-2 IgM Ab (Rapid) Negative 10/19/20 09:45: WBC 11.5 H, RBC 5.44 H, Hgb 16.1
--- NOTE | 2020-10-19 09:54 | ECG_ITS ---
APPROVED REPORT Exam: Resting ECG HR:102 bpm ECG Measurements Heart Rate 102 AXES NV 162 P 75 QRSd 82 QRS 68 QT 344 T 97 QTc 448 Conclusion Sinus tachycardia Nonspecific ST and T wave abnormality Abnormal ECG Electronically signed by : Polo Blakely, 10/19/2020 20:46:17
--- NOTE | 2020-10-19 09:58 | PC.NURSE ---
Seizure pads placed upon arrival.
--- NOTE | 2020-10-19 10:00 | PC.NURSE ---
pt having apenic episodes and snorous respirations, ER MD is aware, have repositioned pts head to keep air way open, pt remains on NRB at 15L. Placed pt on NC at 4L and then at 5L in attempt to wean from NRB, pt sats dropped to 88%. Pt placed back on NRB at 15L Pt will respond to painful stimuli, pt will at that time open her eyes and has repositioned herself in bed several times. Will continue to monitor.
--- NOTE | 2020-10-19 10:06 | XR_ITS ---
PROCEDURE: XR CHEST PORTABLE CLINICAL HISTORY: seizure COMPARISON: CR CXR2V XR chest 2V from 07/03/2018 CR XR CHEST PORTABLE from 03/08/2020 CR XR CHEST PORTABLE from 03/28/[address] CHEST WO CON from 10/19/2020 FINDINGS: This is a somewhat poor inspiration. There is mild generalized cardiomegaly. There appears to be slight motion, however ill-defined opacities are seen in both upper lobes. There monitor lines overlying the chest. IMPRESSION: Somewhat suboptimal chest for the reasons mentioned above but I suspect bilateral upper lobe ill-defined pneumonic infiltrates. It would be helpful to have a upright PA and lateral chest with better inspiration for better overall evaluation Dictated by: Dr. Jose Rudd MD 10/19/2020 11:15 Dr. Jose Rudd MD in [place] 10/19/2020 11:15
--- NOTE | 2020-10-19 10:06 | CT_ITS ---
PROCEDURE: CT HEAD/BRAIN WO CON CLINICAL INDICATION: seizure with fall , COMPARISON: CT CT HEAD/BRAIN WO CON from 03/08/2020 TECHNIQUE: Axial images obtained. All CT scans at the facility use one or more dose reduction, viz: automated exposure control, ma/kV adjustment per patient size (including targeted exams where dose is matched to indication, i.e. head), or iterative reconstruction technique. FINDINGS: No midline shift, mass effect, intracranial hemorrhage, hydrocephalus, or extra-axial fluid collection is evident. The calvarium has an unremarkable appearance. No mastoid effusion. Fluid levels in both maxillary sinuses. The remaining paranasal sinuses appear clear IMPRESSION: No acute intracranial finding bilateral acute maxillary sinusitis Dictated by: Dr. Jose Rudd MD 10/19/2020 10:41 Dr. Jose Rudd MD in [place] 10/19/2020 10:41
--- NOTE | 2020-10-19 10:06 | CT_ITS ---
PROCEDURE: CT CERVICAL SPINE WO CON CLINICAL INDICATION: seizure with fall COMPARISON: No exams were available for comparison TECHNIQUE: Axial images obtained with sagittal and coronal reformats. All CT scans at the facility use one or more dose reduction, viz: automated exposure control, ma/kV adjustment per patient size (including targeted exams where dose is matched to indication, i.e. head), or iterative reconstruction technique. Axial spiral CT scanning performed of the cervical spine beginning at the base of the skull and continuing to the upper T-spine. 3-D multiplanar reconstruction with 3-D manipulation of volumetric data set in image rendering was completed by the radiologist and/or technologist with the supervision of the radiologist on independent workstation. FINDINGS: There is straightening and actually slight reversal of the normal cervical lordosis suggesting muscle spasm. There is slight motion artifact on some of the images. However all 7 cervical vertebrae appear intact. There is no significant disc space narrowing. The spinal canal is normal in size throughout. There is no definite abnormal disc protrusion. The prevertebral soft tissues are normal and the odontoid is normal IMPRESSION: Mild motion artifact somewhat degrading images of the mid cervical spine however there is no obvious fracture or subluxation. There is probable muscle spasm affecting the cervical spine. Dictated by: Dr. Jose Rudd MD 10/19/2020 10:49 Dr. Jose Rudd MD in [place] 10/19/2020 10:49
--- NOTE | 2020-10-19 10:13 | PC.NURSE ---
Pt to rad.
--- NOTE | 2020-10-19 10:22 | CT_ITS ---
PROCEDURE: CT CHEST WO CON CLINICAL INDICATION: seizure COMPARISON: CR XR CHEST PORTABLE from 10/19/2020 TECHNIQUE: Axial images obtained with sagittal and coronal reformats. All CT scans at the facility use one or more dose reduction, viz: automated exposure control, ma/kV adjustment per patient size (including targeted exams where dose is matched to indication, i.e. head), or iterative reconstruction technique. FINDINGS: HEART AND MEDIASTINAL STRUCTURES: There is mild generalized cardiomegaly. There is no pericardial effusion. There is no abnormal superior mediastinal or hilar lymphadenopathy. There is a calcified left hilar node. LUNGS AND PLEURAL SPACES: Motion artifact degrades detail evaluation of the lungs however there appear to be diffuse somewhat ground-glass opacities throughout both lungs. There is pleural thickening and/or a small amount of pleural fluid at both posterior gutters. There is no pneumothorax. BONY STRUCTURES: There are mild multilevel degenerate changes of the thoracic spine. UPPER ABDOMEN: Post cholecystectomy calcified granulomata within the spleen. ADDITIONAL FINDINGS: No other significant abnormalities. IMPRESSION: Motion artifact degrades some of the images particularly the lung windows but I suspect bilateral diffuse ill-defined ground-glass opacities involving both lungs in certainly Covid19 19 pneumonia is a consideration Dictated by: Dr. Jose Rudd MD 10/19/2020 10:55 Dr. Jose Rudd MD in [place] 10/19/2020 10:55
[2020-10-19 10:24] LABS: Basophils % 0.2 % (0.1-2.0); Eosinophils % 0.1 % (0.1-12.0); Hemoglobin 16.1 g/dL (12.2-16.2); Lymphocytes # 1.4 K/mm3 (0.7-4.5); Lymphocytes % 12.1 % (10-50); Mean Corpuscular HGB Conc 30.9 g/dL (31.8-35.4); Mean Corpuscular Hemoglobin 29.6 pg (27.0-31.2); Mean Corpuscular Volume 95.7 fl (81-99); Mean Platelet Volume 7.3 fl (7.4-10.4); Monocytes # 0.3 K/mm3 (0.1-1.0); Monocytes % 2.2 % (1.7-9.3); Neutrophils # 9.8 K/mm3 (1.8-7.8); Neutrophils % 85.4 % (37.0-80.0); Platelet Count 265 K/mm3 (142-424); Red Blood Count 5.44 M/mm3 (4.20-5.40); Red Cell Distribution Width 14.5 % (11.5-17.5); White Blood Count 11.5 K/mm3 (4.8-10.8)
[2020-10-19 10:24] LABS: Microscopic, Urine URINE MICROSCOPIC (MICROSCOPIC)
[2020-10-19 10:26] LABS: MANUAL DIFFERENTIAL MANUAL DIFFERENTIAL (MANUAL DIFF)
[2020-10-19 10:27] LABS: Appearance,Urine CLEAR (Clear); Bilirubin,Urine Negative (Negative); Blood, Urine Negative (Negative); Color,Urine YELLOW (Yellow); Glucose,Urine (UA) Negative (Negative); Ketones,Urine Negative (Negative); Leukocyte Esterase,Urine Negative (Negative); Nitrate,Urine Negative (Negative); PH,Urine 5.5 (5.0-8.5); Protein,Urine Negative (Negative); Specific Gravity, Urine >= 1.030 (1.005-1.030); Urobilinogen,Urine 0.2 EU/dl (0.2)
[2020-10-19 10:27] LABS: Chloride 94 mmol/L (98-107)
[2020-10-19 10:28] LABS: Potassium 4.6 mmoL/L (3.5-5.1); Sodium 138 mmol/L (136-145)
[2020-10-19 10:31] LABS: Anion Gap 18.6 mEq/L (5-15); Blood Urea Nitrogen 17 mg/dl (7-17); Calcium 9.5 mg/dl (8.4-10.2); Carbon Dioxide 30 mmol/L (22.0-30.0); Creatinine Clearance Estimated 117 mL/min (50-200); Estimated Glomerular Filt Rate 44 ml/min (>60); GFR (African American) 54 ML/MIN (>60); Glucose 171 mg/dl (74-100)
--- NOTE | 2020-10-19 10:33 | PC.NURSE ---
Pt returned from rad
[2020-10-19 10:34] LABS: Lymphocytes % 14 % (10-50); Monocytes % 2 % (2-9); Neutrophils % 84 % (42-76); Platelet Estimate Normal; RBC Morphology Normal; Total Cells Counted 100
[2020-10-19 10:34] LABS: RBC,Urine Occasional #/hpf (0-3); Squamous Epithelial Cell,Urine Occasional #/hpf (0-5)
[2020-10-19 10:38] LABS: Amphetamine/Metha Screen,Urine Negative ng/ml (<1000); Benzodiazepines Screen,Urine Negative ng/ml (<200)
[2020-10-19 10:39] LABS: Barbiturates Screen,Urine Negative ng/ml (<200)
[2020-10-19 10:40] LABS: Cannabinoid Screen,Urine Negative ng/ml (<50); Cocaine Screen,Urine Negative ng/ml (<300)
[2020-10-19 10:41] LABS: Methadone Screen,Urine Negative ng/ml (<300); Opiate Screen,Urine Negative ng/ml (<300)
[2020-10-19 10:42] LABS: Phencyclidine Screen,Urine Negative ng/ml (<25)
[2020-10-19 10:43] LABS: Troponin I 0.02 ng/ml (0.00-0.034)
[2020-10-19 10:48] LABS: Coronavirus 19 IgG Antibody Negative (Negative); Coronavirus 19 IgM Antibody Negative (Negative)
--- NOTE | 2020-10-19 11:12 | PC.NURSE ---
RT at bedside
--- NOTE | 2020-10-19 11:20 | PC.NURSE ---
pt placed on bipap per RT per ER MD order r/t apenic episodes
[2020-10-19 11:31] LABS: ABG Base Excess 5.1 mmol/L (-2.4-2.3); ABG HCO3 35.4 mmhg (22.0-26.0); ABG Oxygen Saturation 94 % (90-100); ABG PO2 80.1 mmhg (80-100); ABG TCO2 39.3 mmhg (23-27)
[2020-10-19 11:32] LABS: Allen's Test Patient Unable; Oxygen 100% NRB %; Source Left Brachial
[2020-10-19 11:35] LABS: ABG PCO2 126.9 mmhg (35.0-45.0); ABG PH 7.06 mmol/L (7.35-7.45)
--- NOTE | 2020-10-19 11:36 | PC.NURSE ---
MD at bedside speaking with pt's daughter at this time.
--- NOTE | 2020-10-19 12:00 | PC.NURSE ---
pt moved to a room with a door on it pending covid swab result. ER MD is aware of chest xray/CT report states to leave pt on bipap until result of covid swab r/t pt unable to maintain O2 sats without bipap.
[2020-10-19 12:02] LABS: Adenovirus,PCR Not Detected (NotDetected); Bordetella Pertussis Not Detected (NotDetected); Chlamydophila Pneumoniae, PCR Not Detected (NotDetected); Coronavirus 19, PCR Not Detected (NotDetected); Coronavirus 229E Not Detected (NotDetected); Coronavirus NL63 Not Detected (NotDetected); Coronavirus OC43 Not Detected (NotDetected); Coronovirus HKU1,PCR Not Detected (NotDetected); Human Metapneumovirus Not Detected (NotDetected); Influenza A, PCR Not Detected (NotDetected); Influenza AH1, 2009 Not Detected (NotDetected); Influenza AH1, PCR Not Detected (NotDetected); Influenza AH3,PCR Not Detected (NotDetected); Influenza B, PCR Not Detected (NotDetected); Mycoplasma Pneumoniae, PCR Not Detected (NotDetected); Parainfluenza 1, PCR Not Detected (NotDetected); Parainfluenza 2, PCR Not Detected (NotDetected); Parainfluenza 3, PCR Not Detected (NotDetected); Parainfluenza 4, PCR Not Detected (NotDetected); Respiratory Syncytial Virus Not Detected (NotDetected); Rhinovirus/Enterovirus Not Detected (NotDetected)
--- NOTE | 2020-10-19 12:03 | PC.NURSE ---
single fold machine operator paging dr. doll r/t office is closed for lunch
--- NOTE | 2020-10-19 12:59 | PC.NURSE ---
CALLED RESP FOR REPEAT BLOOD GAS
--- NOTE | 2020-10-19 13:14 | PC.NURSE ---
rt at bedside
--- NOTE | 2020-10-19 13:14 | PC.NURSE ---
6 mins left on pt's covid swab.
[2020-10-19 13:40] LABS: ABG HCO3 29.7 mmhg (22.0-26.0); ABG Oxygen Saturation 93 % (90-100); ABG PH 7.22 mmol/L (7.35-7.45); ABG PO2 68.5 mmhg (80-100)
[2020-10-19 13:42] LABS: Allen's Test Patient Unable; Oxygen 40 %; PEEP 6; Pressure Support 18; Source Left Radial; Vent Rate 12
[2020-10-19 13:44] LABS: ABG PCO2 74.6 mmhg (35.0-45.0)
[2020-10-19 14:32] LABS: Troponin I 0.02 ng/ml (0.00-0.034)
--- NOTE | 2020-10-19 15:53 | PC.NURSE ---
notified registration staff of admission information
--- NOTE | 2020-10-19 15:57 | PC.NURSE ---
Dr. Malik stated pt is okay to be admitted to a regular floor bed, pt will Q4H vital signs and continuo pulse ox. house mover aware of this.
--- NOTE | 2020-10-19 16:50 | PC.NURSE ---
report given to arabella tobar
[2020-10-19 16:55] LABS: Troponin I 0.02 ng/ml (0.00-0.034)
--- NOTE | 2020-10-19 17:06 | HMH.HP ---
*Admission Date: 10/19/20 *Chief complaint: Seizures with respiratory failure *History of present illness: 45-year-old female with long history of seizures, chemical dependency, medical noncompliance was witnessed by family having seizures this morning. Number of seizures and length of seizures is undefined. Typically the the patient's seizures are not long-lasting however family could not get seizures to stop at home and EMS was called. Despite being administered Versed in route to the hospital patient continued to seize until she received Ativan in the emergency department. Work-up revealed hypercapnic respiratory failure and the patient did respond to administration of BiPAP in the ER. Further work-up is also raise suspicion for pneumonia. At the time of interview patient is able to answer questions and does report that she has had a cough with yellowish-brown sputum for the last several days and reports low-grade fevers. Patient's viral respiratory panel was negative for Covid along with other viral infections. [facility] [place] History I have reviewed the patient's past medical history: Yes Medical History: Reports:: Migraine, Seizures *Have you ever received a pneumonia vaccine?: No *Have you received a flu vaccine this season?: No Other Medical History: Reports: Arthritis, Thyroid Disease, Other (Depression, anxiety, PTSD.) Comment:: Opiate dependency Other Surgeries: Yes: Appendectomy, Cholecystectomy, Hysterectomy-Total Amputation: No Fractures: No - *Social History Smoking Status: Current every day smoker Tobacco Type: cigarettes # Packs/Day (cigarettes): 1 Alcohol Intake: never Alcohol Intake Frequency:: other Substance Use Type: methamphetamine *Occupational Status:: other *Travel in the last 8 weeks: None Family Hx:: No significant family history Review of Systems - Constitutional Denies anorexia, Denies body ache(s), Denies chills, Denies lack of energy - *Cardiovascular Denies chest pain, Denies chest pain at rest, Denies chest pain with activity - *Respiratory Reports change in phlegm color, Reports chest congestion, Reports cough, Reports shortness of breath - *Gastrointestinal Reports abdominal pain, Denies loose stools, Denies heartburn - *Musculoskeletal Denies abnormal walking, Denies joint pain - *Neurologic Reports confusion, Reports seizure-like activity, Reports frequent falls, Reports lack of coordination, Reports tremor(s), Denies numbness Meds Home Medications Medication Instructions Recorded Confirmed Type Albuterol Sulfate [Albuterol 2 puffs IH Q6HP PRN 03/09/20 10/19/20 History Sulfate Hfa] Buspirone HCl [Buspar 10mg 10 mg PO TID 03/09/20 10/19/20 History tablet] Dicyclomine HCl [Bentyl 10mg 10 mg PO Q8HP PRN 03/09/20 10/19/20 History capsule] Divalproex Sodium [Divalproex 500 mg PO TID 03/09/20 10/19/20 History Sodium ER] Duloxetine HCl 30 mg PO HS 03/09/20 10/19/20 History Furosemide [Lasix 20mg tablet] 20 mg PO BIDL 03/09/20 10/19/20 History Gabapentin 300 mg PO BID 03/09/20 10/19/20 History Levothyroxine Sodium 200 mcg PO DAILY 03/09/20 10/19/20 History [Levothyroxine 200mcg (0.2mg) Tab] Loperamide HCl [Loperamide] 4 mg PO Q5MINP PRN 03/09/20 10/19/20 History Multivit-Min/Iron/Folic/Lutein 1 each PO DAILY 03/09/20 10/19/20 History [Centrum Silver Women Tablet] OXcarbazepine [Oxcarbazepine] 150 mg PO BID 03/09/20 10/19/20 History Potassium Chloride [Micro-K 10mEq 20 meq PO DAILY 03/09/20 10/19/20 History cap] Prazosin HCl [Minipres 1mg capsule] 1 mg PO HS 03/09/20 10/19/20 History Quetiapine Fumarate 100 mg PO DAILY 03/09/20 10/19/20 History Quetiapine Fumarate 200 mg PO HS 03/09/20 10/19/20 History Spironolactone 100 mg PO DAILY 03/09/20 10/19/20 History Tizanidine HCl 4 mg PO TIDP PRN 03/09/20 10/19/20 History Trazodone HCl 100 mg PO HSP PRN 03/09/20 10/19/20 History hydrOXYzine pamoate [Hydroxyzine 50 mg PO Q6HP PRN 03/09/20 10/19/20 History Pamoate] Andie
[2020-10-19 17:37] LABS: Procalcitonin 0.058 ng/mL (0.0-2.0)
--- NOTE | 2020-10-19 19:07 | PC.NURSE ---
Pt very drowsy and unable to stay awake enough to go through med list to complete med rec. Will pass to oncoming nurse to assess once pt is more awake/alert.
--- NOTE | 2020-10-19 20:03 | PC.NURSE ---
Pt is A&O x4, but very drowsy. Remains on BIPAP @ 40% w/ cont pulse ox. Seizure pads in place. Pt currently resting in bed w/ no needs voiced. Call be w/in reach.
--- NOTE | 2020-10-19 20:10 | P.CONPHA_ITS ---
[facility] Pharmacy VTE Monitoring - Patient Demographics Admission date: 10/19/20 Report Date: 10/19/20 Time: 20:10 Allergies/Adverse Reactions: Patient Allergies acetaminophen [From ULTRACET] Allergy (Mild, Verified 03/08/20 19:04) amitriptyline [AMITRIPTYLINE] Allergy (Mild, Verified 03/08/20 19:04) aspirin [ASPIRIN] Allergy (Mild, Verified 03/08/20 19:04) butorphanol [From STADOL] Allergy (Mild, Verified 03/08/20 19:04) carbamazepine [From TEGRETOL] Allergy (Mild, Verified 03/08/20 19:04) celecoxib [From CELEBREX] Allergy (Mild, Verified 03/08/20 19:04) ketorolac [From TORADOL] Allergy (Mild, Verified 03/08/20 19:04) meloxicam [MELOXICAM] Allergy (Mild, Verified 03/08/20 19:04) metoclopramide [From REGLAN] Allergy (Mild, Verified 03/08/20 19:04) NSAIDS (Non-Steroidal Anti-Inflamma [NSAIDS (NON-STEROIDAL ANTI-INFLAMMA] Allergy (Mild, Verified 03/08/20 19:04) phenobarbital [PHENOBARBITAL] Allergy (Mild, Verified 03/08/20 19:04) promethazine [From PHENERGAN] Allergy (Mild, Verified 03/08/20 19:04) propoxyphene [From DARVOCET-N] Allergy (Mild, Verified 03/08/20 19:04) tramadol [From ULTRACET] Allergy (Mild, Verified 03/08/20 19:04) Height: 1.83 m Weight: 136.078 kg Patient Problems: Current Active Problems Pneumonia (Acute) Seizure (Acute) - VTE Risk Labs: VTE Related Lab Results Hgb 16.1 g/dL (12.2-16.2) 10/19/20 09:45 Hct 52.0 % (37.0-47.0) H 10/19/20 09:45 Plt Count 265 K/mm3 (142-424) 10/19/20 09:45 BUN 17 mg/dl (7-17) 10/19/20 09:45 Creatinine 1.30 mg/dl (0.52-1.04) H 10/19/20 09:45 Estimated Creat Clear 117 mL/min (50-200) 10/19/20 09:45 Was VTE Risk Assessment Performed: Yes VTE Score: 5 VTE Risk Level: Low Risk Clinical Trial Participant: No - Prophylaxis VTE Prophylaxis Ordered?: Yes Types of VTE Prophylaxis: TEDS Knee High
--- NOTE | 2020-10-19 20:37 | HMH.PHAINT ---
HOME MEDICATION LIST CLARIFIED USING LIST FROM CLINIC PHARMACY. JOSEPH KENNY WILL CLARIFY FOUR UNCONFIRMED MEDICATIONS WITH PATIENT IF SHE IS ABLE.
--- NOTE | 2020-10-19 23:25 | PC.NURSE ---
attempted to awaken pt, pt awakens to name, but quickly falls back to sleep, held 2100 medications due to pt not being alert enough to take PO medications
[2020-10-20] VITALS (14 sets, daily range): BP systolic 100–128; BP diastolic 56–71; PULSE 50–83; RESP 16–19; TEMP 36.4–37; O2SAT 91–99; BMI 42.7
--- NOTE | 2020-10-20 04:32 | PC.NURSE ---
pharmacy called to ask for the unknown medications on the home med list to be confirmed, pt was unable to confirm the last time these 4 medications were taken
--- NOTE | 2020-10-20 05:16 | PC.NURSE ---
pt has been resting with eyes closed most of this shift, will respond appropriately if awake, remains on Bipap with O2 sats 96-99%, left lung has inspiratory rhonchi, right lung diminished, has remained afebrile, no complaints of SOA or chest pain
[2020-10-20 06:52] LABS: Eosinophils # 0.1 K/mm3 (0.0-0.4); Hematocrit 42.5 % (37.0-47.0); Red Cell Distribution Width 14.5 % (11.5-17.5)
[2020-10-20 06:56] LABS: Chloride 102 mmol/L (98-107); Sodium 138 mmol/L (136-145)
[2020-10-20 06:57] LABS: Potassium 4.4 mmoL/L (3.5-5.1)
[2020-10-20 06:59] LABS: Alanine Aminotransferase 10 U/L (12-78); Alkaline Phosphatase 62 U/L (38-126); Aspartate Amino Transferase 25 U/L (14-36); Bilirubin,Total 0.6 mg/dl (0.2-1.3); Blood Urea Nitrogen 20 mg/dl (7-17); Creatinine Clearance Estimated 102 mL/min (50-200); Estimated Glomerular Filt Rate 78 ml/min (>60); GFR (African American) 94 ML/MIN (>60)
[2020-10-20 07:00] LABS: Albumin Level 3.1 g/dl (3.5-5.0); Anion Gap 2.4 mEq/L (5-15); Carbon Dioxide 38 mmol/L (22.0-30.0); Globulin 3.1 g/dL (1.3-3.2); Glucose 93 mg/dl (74-100); Total Protein,Serum 6.2 g/dl (6.3-8.2)
[2020-10-20 07:16] LABS: Basophils % 0.3 % (0.1-2.0); Eosinophils % 1.3 % (0.1-12.0); Lymphocytes # 2.5 K/mm3 (0.7-4.5); Lymphocytes % 26.7 % (10-50); Mean Corpuscular HGB Conc 30.9 g/dL (31.8-35.4); Mean Corpuscular Hemoglobin 29.2 pg (27.0-31.2); Mean Corpuscular Volume 94.4 fl (81-99); Mean Platelet Volume 7.3 fl (7.4-10.4); Monocytes # 0.5 K/mm3 (0.1-1.0); Neutrophils # 6.3 K/mm3 (1.8-7.8); Neutrophils % 66.6 % (37.0-80.0); Platelet Count 160 K/mm3 (142-424); White Blood Count 9.5 K/mm3 (4.8-10.8)
[2020-10-20 07:27] LABS: Calcium 8.4 mg/dl (8.4-10.2)
[2020-10-20 07:28] LABS: Hemoglobin 13.1 g/dL (12.2-16.2)
--- NOTE | 2020-10-20 08:00 | PC.NURSE ---
Pt taken off bipap per Dr. Malik. Placed on 2L NC 93% oxygen saturation noted. pt tolerating well. will continue to monitor.
--- NOTE | 2020-10-20 08:04 | HMH.ACPN2 ---
Internal Medicine - PN: Subj *Date: 10/20/20 *Time: 08:04 Interval history: Patient has remained on BiPAP overnight due to depressed level of consciousness. Patient can awaken to verbal and tactile stimulus and answer questions but generally falls back to sleep quickly per nursing staff. Exam Vital signs and Labs for Last 24 Hours: Temp Pulse Resp BP Pulse Ox 98.5 F 81 19 100/59 L 98 10/20/20 07:46 10/20/20 07:46 10/20/20 07:46 10/20/20 07:46 10/20/20 07:46 Laboratory Results - last 24 hr 10/19/20 09:45: SARS-CoV-2 IgG Ab (Rapid) Negative, SARS-CoV-2 IgM Ab (Rapid) Negative 10/19/20 09:45: WBC 11.5 H, RBC 5.44 H, Hgb 16.1, Hct 52.0 H, MCV 95.7, MCH 29.6, MCHC 30.9 L, RDW 14.5, Plt Count 265, MPV 7.3 L, Neut % (Auto) 85.4 H, Lymph % (Auto) 12.1, Gregg % (Auto) 2.2, Eos % (Auto) 0.1, Baso % (Auto) 0.2, Neut # (Auto) 9.8 H, Lymph # (Auto) 1.4, Gregg # (Auto) 0.3, Eos # (Auto) 0.0, Baso # (Auto) 0.0, Total Counted 100, Neutrophils % (Manual) 84 H, Lymphocytes % (Manual) 14, Monocytes % (Manual) 2, Platelet Estimate Normal, RBC Morphology Normal 10/19/20 09:45: Sodium 138, Potassium 4.6, Chloride 94 L, Carbon Dioxide 30, Anion Gap 18.6 H, BUN 17, Creatinine 1.30 H, Estimated Creat Clear 117, Estimated GFR 44 L, Est GFR ( Amer) 54 L, Glucose 171 H, Calcium 9.5, Troponin I 0.02 10/19/20 09:50: Urine Color Yellow, Urine Appearance Clear, Urine pH 5.5, Ur Specific Sawyer >= 1.030, Urine Protein Negative, Urine Glucose (UA) Negative, Urine Ketones Negative, Urine Blood Negative, Urine Nitrate Negative, Urine Bilirubin Negative, Urine Urobilinogen 0.2, Ur Leukocyte Esterase Negative, Urine RBC Occasional, Urine WBC 3-5, Ur Squamous Epith Cells Occasional 10/19/20 09:50: Urine Opiates Screen Negative, Urine Methadone Screen Negative, Ur Barbituates Screen Negative, Ur Phencyclidine Scrn Negative, Ur Amphetamines Screen Negative, U Benzodiazepines Scrn Negative, Urine Cocaine Screen Negative, U Marijuana (THC) Screen Negative 10/19/20 11:28: Specimen Source Left brachial, O2 % 100% nrb, ABG pH 7.06 L*, ABG pCO2 126.9 H, ABG pO2 80.1, ABG HCO3 35.4 H, ABG Total CO2 39.3 H, ABG O2 Saturation 94, ABG Base Excess 5.1 H, Kyle Test Patient unable 10/19/20 11:48: Chlamy pneumoniae PCR Not detected, Adenovirus (PCR) Not detected, B. pertussis DNA (PCR) Not detected, Coronavirus OC43 (PCR) Not detected, Coronavirus HKU1 (PCR) Not detected, Coronavirus 229E (PCR) Not detected, SARS-CoV-2 (PCR) Not detected, Coronavirus NL63 (PCR) Not detected, Human Metapneumovir PCR Not detected, Influenza A (H1) PCR Not detected, Influ A (H1N1/09) PCR Not detected, Influenza A (H3) PCR Not detected, Influenza Type A (PCR) Not detected, Influenza Type B (PCR) Not detected, M. pneumoniae (PCR) Not detected, Parainfluenza 1 (PCR) Not detected, Parainfluenza 2 (PCR) Not detected, Parainfluenza 3 (PCR) Not detected, Parainfluenza 4 (PCR) Not detected, RSV (PCR) Not detected, Entero/Rhino (PCR) Not detected 10/19/20 13:18: Specimen Source Left radial, O2 % 40, ABG pH 7.22 L*, ABG pCO2 74.6 H, ABG pO2 68.5 L, ABG HCO3 29.7 H, ABG Total CO2 32.0 H, ABG O2 Saturation 93, ABG Base Excess 2.0, Kyle Test Patient unable, Vent Rate 12, PEEP 6 10/19/20 13:56: Troponin I 0.02 10/19/20 16:00: Troponin I 0.02 10/19/20 16:08: Procalcitonin 0.058 10/20/20 06:39: WBC 9.5, RBC 4.50, Hgb 13.1 D, Hct 42.5, MCV 94.4, MCH 29.2, MCHC 30.9 L, RDW 14.5, Plt Count 160 D, MPV 7.3 L, Neut % (Auto) 66.6, Lymph % (Auto) 26.7, Gregg % (Auto) 5.0, Eos % (Auto) 1.3, Baso % (Auto) 0.3, Neut # (Auto) 6.3, Lymph # (Auto) 2.5, Gregg # (Auto) 0.5, Eos # (Auto) 0.1, Baso # (Auto) 0.0 10/20/20 06:39: Sodium 138, Potassium 4.4, Chloride 102, Carbon Dioxide 38 H D, Anion Gap 2.4 L, BUN 20 H, Creatinine 0.80 D, Estimated Creat Clear 102, Estimated GFR 78, Est GFR ( Amer) 94 D, Glucose 93 D, Calcium 8.4 D, Total Bilirubin 0.6, AST 25, ALT 10 L, Alkaline Phosphatase 62, Total Protein 6.2 L D, Albumin 3.1 L, Globulin 3.1
[2020-10-20 08:19] LABS: Procalcitonin 0.059 ng/mL (0.0-2.0)
--- NOTE | 2020-10-20 08:27 | SW/DCPLANNER ---
PATIENT PRESENTED INTO THE ED AFTER WITNESSING SEIZURES PER FAMILY MEMBERS... PATIENT ALSO HAS A HISTORY OF SUBSTANCE ABUSE AND HAD RECENTLY COMPLETED A PROGRAM...SHE IS FROM HOME AND THE PLAN IS TO RETURN BACK HOME WITH A POSSIBLE DISCHARGE TMRW (SATURDAY) PENDING NO SETBACKS.. PATIENT IS CURRENTLY ON BI-PAP AND HAS SLEPT OFF AND ON MOST OF THE NIGHT..MADE ROUNDS WITH DR SAUCEDO THIS MORNING AND HE IS WEANING HER OFF THE BI-PAP AND CONVERTING HER TO NASAL CANNULA, ONCE FULLY AWAKE HE WANTS HER TO BE UP IN THE CHAIR AND CAN HAVE A DIET.. PATIENT WOKE UP TO HAVE AN UNDERSTANDING... PLAN ON A DISPOSITION IN THE AM....
--- NOTE | 2020-10-20 13:58 | HMH.PHAINT ---
MEDICATION RECONCILIATION COMPLETED ON PATIENT USING EXTERNAL FILL HISTORY FROM PHARMACY AND LIST FROM CLINIC PHARMACY. -KEVEN PARRISHD
--- NOTE | 2020-10-20 17:36 | PC.NURSE ---
Pt states she isn't allergic to acetaminophen. Removed from allergy list.
--- NOTE | 2020-10-20 17:59 | PC.NURSE ---
A&OX4. PT HAS TOLERATED 2L NC WELL THROUGHOUT SHIFT. RESPIRATIONS REGULAR AND UNLABORED. LUNG SOUNDS DIMINISHED WITH RHONCHI NOTED TO LLL. NO COUGH NOTED. HAND DECORATOR MANNEQUIN EQUAL. +2 PULSES NOTED THROUGHOUT. PT HAS REMAINED ON TELE. NSR NOTED. ACTIVE BOWEL SOUNDS HEARD IN ALL 4 QUADRANTS. SOFT AND TENDER ABDOMEN. NO BM THUS FAR. ROUSE CATHETER IN PLACE W YELLOW URINE NOTED. NO KINKS NOTED. PT REPORTED A HEADACHE ONCE AND ASKED FOR TYLENOL. DISCUSSED W PT THAT ACETAMINOPHEN IS LISTED AN ALLERGY FOR HER. SHE STATED NO SEVERAL TIMES. TYLENOL WAS GIVEN AND PT HASN'T HAD ANY REACTION. WILL CONTINUE TO MONITOR. PT HAS SLEPT MOST OF THE DAY. SEVERAL FAMILY MEMBERS HAVE CALLED AND STATED THIS IS NORMAL FOR HER AFTER HAVING A SEIZURE BECAUSE SHE USUALLY GETS A REALLY BAD HEADACHE. PT HAS REPORTED NO OTHER PAIN. PT WAS EDUCATED ON HOW TO USE THE INCENTIVE SPIROMETER AND ENCOURAGED TO USE IT 10 TIMES EVERY HOUR WHILE AWAKE. PT RECEIVED ROCEPHIN AND AZITHROMYCIN THIS SHIFT AND TOLERATED WELL. NS INFUSING AT 50ML/HR. PT IS CURRENTLY LYING IN BED RESTING. BED IN LOWEST POSITION. CALL LIGHT WITHIN REACH. BED IN LOWEST POSITION. SEIZURE PRECAUTIONS IN PLACE. VSS. WILL CONTINUE TO MONITOR.
[2020-10-21] VITALS (9 sets, daily range): BP systolic 102–140; BP diastolic 60–87; PULSE 60–83; RESP 16–19; TEMP 36.6–37.1; O2SAT 90–98; BMI 43.5; BMI 43.6
--- NOTE | 2020-10-21 00:57 | PC.NURSE ---
Pt's O2 sat on 2 lpm = 96%. Pt states that she does not want to wear bipap.
--- NOTE | 2020-10-21 05:10 | PC.NURSE ---
no acute changes since prior assessment, pt has been more alert this shift than prior evening, however has slept most of the shift, is AxOx4, remains on 2L NC with O2 sats 94-96%, lung sounds diminished, no complaints of SOA, RR 16-19, unlabored and spontaneous, whalen is patent and draining cloudy yellow urine with sediment, IS at bedside and pt has been educated on the use of it
--- NOTE | 2020-10-21 06:55 | PC.NURSE ---
room air sat was 92 % this morning
--- NOTE | 2020-10-21 08:19 | HMH.ACPN2 ---
Internal Medicine - PN: Subj *Date: 10/21/20 *Time: 08:19 Interval history: Over the last 24 hours patient has been more awake although still is sleeping frequently. Room air O2 sats have been 90%. Patient has yet to be out of bed. Patient reports feeling hungry. She has not used the incentive spirometer as frequently as desired. Exam Vital signs and Labs for Last 24 Hours: Temp Pulse Resp BP Pulse Ox 98.1 F 69 17 125/74 93 L 10/21/20 08:00 10/21/20 08:00 10/21/20 08:00 10/21/20 08:00 10/21/20 08:00 Laboratory Results - last 24 hr 10/20/20 06:39: Procalcitonin 0.059 I & O for Last 24 hours: Intake & Output 10/18/20 10/19/20 10/20/20 10/21/20 11:59 11:59 11:59 11:59 Intake Total 1371 / 1371 1910 / 1910 Output Total 700 / 700 750 / 750 Balance 671 / 671 1160 / 1160 Weight 300 lb 316 lb 2 oz 321 lb 12.8 oz Narrative: Patient is in no distress. She still seems to date. Lungs have diminished breath sounds at the bases but rales that were present on admission are much less prominent. Heart has a regular rate and rhythm. Abdomen is soft. Extremities have no edema Assessment and Plan (1) Seizure Status: Acute Category: Medical Code(s): R56.9 - Unspecified convulsions (2) Pneumonia Status: Acute Qualifiers: Pneumonia type: due to unspecified organism Laterality: bilateral Lung location: lower lobe of lung Qualified Code(s): J18.9 - Pneumonia, unspecified organism Category: Medical Code(s): J18.9 - Pneumonia, unspecified organism - Assessment and plan all Dx Assessment and Plan for all problems:: 1. Patient has been instructed to get out of bed with assistance today and ambulate as well as sit in the chair. 2. Use incentive spirometer hourly 3. DC Britt catheter 4. Continue to assess room air oxygenation 5. Patient's gabapentin will be held due to its sedating effect.
--- NOTE | 2020-10-21 08:24 | PC.NURSE ---
DR. SAUCEDO AT BEDSIDE, NEW ORDERS TO REMOVE ROUSE, STOP IV FLUIDS AND STOP GABAPENTIN.
[2020-10-21 08:26] LABS: Procalcitonin 0.053 ng/mL (0.0-2.0)
--- NOTE | 2020-10-21 19:07 | PC.NURSE ---
PATIENT A&O X4, LUNGS ARE CLEAR, PULSES EQUAL. PATIENT UP TO BATHROOM 2X FOR THIS RN, UNSTEADY GAIT, WEAKNESS IN LEGS AND PATIENT SWAYS. THIS RN EDUCATED PATIENT IN REGARDS TO SAFETY WHEN AMBULATING, THAT IT IS BEST TO USE HER CALL LIGHT AND HAVE A STAND BY ASSIST. PATIENT VERBALIZED AN UNDERSTANDING. WHEN THIS RN ESCORTED PATIENT TO RESTROOM AND INSTRUCTED PATIENT TO PULL THE CORD WHEN DONE. THIS RN WENT TO CHECK ON PATIENT AND PATIENT WAS BACK IN BED WITHOUT ASSISTANCE. THIS RN REMOVED ROUSE, PATIENT TOLERATED WELL. PATIENT SLEPT FOR MOST OF THIS RN SHIFT. PATIENT AWAKE FOR MEALS AND TOLERATED MEALS. THIS RN ENCOURAGE PATIENT TO DRINK PLENTY OF FLUIDS. THIS RN ENCOURAGED PATIENT TO USE HER IS. NO OTHER CONCERNS AT THIS TIME.
[2020-10-22] VITALS: BP 118/60; PULSE 70; PULSE 78; RESP 17; TEMP 37.1; O2SAT 96
[2020-10-22 04:00] VITALS: BP 102/61; PULSE 75; RESP 17; TEMP 36.9; O2SAT 92
--- NOTE | 2020-10-22 04:22 | PC.NURSE ---
pt has had to be on o2 throughout shift. o2 sat drop at times to 86% but have remained around 90% most of night. o2 sat will increase upon arousal. IS was used and pt is able to reach 2500. iv SL. pt educated on safety can to call out when needing to ambulate. call light in reach. vss. will continue to monitor pt condition.
[2020-10-22 05:00] VITALS: BMI 42.8
[2020-10-22 07:08] VITALS: PULSE 72; PULSE 74; O2SAT 94
[2020-10-22 08:00] VITALS: BP 111/60; PULSE 70; PULSE 92; RESP 18; TEMP 37; O2SAT 90
--- NOTE | 2020-10-22 08:27 | HMH.DCSUM ---
General - General Admission date:: 10/19/20 Discharge date: 10/22/20 HPI HPI: 45-year-old female with long history of seizures, chemical dependency, medical noncompliance was witnessed by family having seizures this morning. Number of seizures and length of seizures is undefined. Typically the the patient's seizures are not long-lasting however family could not get seizures to stop at home and EMS was called. Despite being administered Versed in route to the hospital patient continued to seize until she received Ativan in the emergency department. Work-up revealed hypercapnic respiratory failure and the patient did respond to administration of BiPAP in the ER. Further work-up is also raise suspicion for pneumonia. At the time of interview patient is able to answer questions and does report that she has had a cough with yellowish-brown sputum for the last several days and reports low-grade fevers. Patient's viral respiratory panel was negative for Covid along with other viral infections. Hospital Course Hospital Course: Patient was admitted after prolonged seizure at home with prolonged ictal phase and altered mental status with signs of respiratory failure. On presentation to the emergency department patient was placed on BiPAP after she was found to have severe hypercapnic respiratory acidosis and responded well to BiPAP. Patient was admitted on BiPAP which she continued for nearly full 24 hours before transitioning to nasal cannula. Once patient was on nasal cannula she maintained O2 sats in the low to mid 90s and ultimately was able to maintain O2 sats while awake on room air. Patient has a [id number] history of smoking, obesity and I suspect underlying COPD as well as sleep apnea likely contributed to her hypercapnia. Chest x-ray on admission was concerning for early viral pneumonia. Rapid respiratory panel was negative for viral infections. Patient was admitted on Rocephin and azithromycin to cover community-acquired pneumonia. However prolactin was low. When prolactin remainED low on repeat testing antibiotics were discontinued. The night prior to discharge patient did have O2 sats decreased to 86% while asleep that resulted in application of supplemental oxygen. Home oxygen will be arranged prior to discharge. Patient has a long history of seizures and questionable medical compliance. On admission she was loaded with Keppra 1 g and was continued on Keppra 1000 mg p.o. twice daily during hospitalization in addition to her Trileptal and Depakote. Keppra and Depakote levels were ordered but are send out test at this hospital and neither result was available at the time of this dictation. Patient was on seizure precautions during the remainder of hospitalization. After day 1 patient was transitioned out of bed and assessed by nursing staff. While patient was witnesses being unsteady on her feet she was able to ambulate independently. On October 22 patient was stable for discharge. She was discharged home. Patient will follow-up in my office this coming week where PFTs and an outpatient sleep study will be arranged. Patient will also need to establish care with neurology. Objective Vital signs: Temp Pulse Resp BP Pulse Ox 98.6 F 92 H 18 111/60 90 L 10/22/20 08:00 10/22/20 08:00 10/22/20 08:00 10/22/20 08:00 10/22/20 08:00 no acute distress - *Routine HEENT Exam Head: Present: normocephalic Eye: Present: EOMI, PERRL ENT: Present: mucous membranes moist - *Routine Neck Exam Present: supple - *Routine Respiratory Exam Present: CTA bilaterally - *Routine Cardiovascular Exam Present: RRR - *Routine Abdominal Exam Present: soft, normoactive bowel sounds. Absent: tenderness - *Routine Extremities Exam Absent: cyanosis, clubbing, edema - *Routine Skin Exam Present: warm. Absent: rash - Detailed Eye Exam Eyelids: Bilateral normal inspection Results Labs on day of discharge: Labs
[2020-10-24 10:49] LABS: Levetiracetam (Keppra) 16.8 ug/mL (10.0-40.0)
== END 2020-10-22 10:36 | disposition home or self-care (01) | DRG 100 ==
LOC: ER 15:05 → 2ND 10-20 07:14
PROVIDERS: Admitting Provider Family Medicine; Emergency Provider Emergency Medicine; PCP Family Medicine; Visit Provider Family Medicine
DX: G40.802 Other epilepsy, not intractable, without status epilepticus (principal); J96.91 Respiratory failure, unspecified with hypoxia; J18.9 Pneumonia, unspecified organism; T42.76XA Underdosing of unspecified antiepileptic and sedative-hypnotic drugs, initial encounter; Z91.128 Patient's intentional underdosing of medication regimen for other reason; Z72.0 Tobacco use; E03.9 Hypothyroidism, unspecified; Z79.890 Hormone replacement therapy; Z79.899 Other long term (current) drug therapy; Z88.5 Allergy status to narcotic agent
CPT/HCPCS: 94660; 36415; 70450; 71045; 71250; 72125; 80048; 80053; 80165; 80177; 80305; 81001; 82803; 84145; 84484; 85007; 85025; 86328; 87040; 87581; 87633; 87798; 93005; 94640; 94761; 96365; 96375; 99285; J0456; J1953

== ENCOUNTER → 2020-11-14 11:02 | Outpatient (CLI) | payer OTHER, SELFPAY | PROVIDERS: PCP Family Medicine; Visit Provider Family Medicine | DX: G47.33 Obstructive sleep apnea (adult) (pediatric) (principal); J44.9 Chronic obstructive pulmonary disease, unspecified | CPT/HCPCS: 95806 ==

== ENCOUNTER → 2020-12-08 13:58 | Outpatient (CLI) | payer OTHER, SELFPAY ==
--- NOTE | 2020-12-08 14:20 | PC.NURSE ---
Pre and Post Spirometry completed without complications. Albuterol 0.083% given via HHN per written protocol, Pt tolerated tx well.
--- NOTE | 2020-12-08 14:39 | XR_ITS ---
PROCEDURE: XR LUMBAR SPINE MIN 4V CLINICAL INDICATION: SACRAL BACK PAIN COMPARISON: CR [id number] XR lumbar spine min 4V from 07/08/2018 FINDINGS: Cortical mio from prior cholecystectomy are visible. There is straightening of the normal lordosis of the lumbar spine which suggests muscle spasm. There is mild degenerative change at L4-5 slightly progressed compared with 2018. There are mild facet degenerative changes typical for patient age. There is no spondylo lysis or spondylolisthesis. No significant foraminal bony narrowing. The SI joints are normal. IMPRESSION: Muscle spasm. Progression of L4-5 disc space narrowing, now moderate. Dictated by: Annemarie Rojas MD 12/08/2020 17:53 Annemarie Rojas MD in [place] 12/08/2020 17:53
== END ==
PROVIDERS: PCP Family Medicine; Visit Provider Family Medicine
DX: R06.00 Dyspnea, unspecified (principal); R06.89 Other abnormalities of breathing; M53.3 Sacrococcygeal disorders, not elsewhere classified; F17.210 Nicotine dependence, cigarettes, uncomplicated
CPT/HCPCS: 72110; 94060

== ENCOUNTER 2020-12-21 15:47 | Emergency (ER) | payer OTHER, SELFPAY ==
[2020-12-21 15:48] VITALS: BP 133/76; PULSE 80; RESP 20; TEMP 37; O2SAT 96; BMI 40.7
--- NOTE | 2020-12-21 15:51 | HMH.EDGENADL ---
ED Disposition Clinical Impression: Anxiety, Seizure disorder Disposition: Home, Self-Care Condition on Discharge: Good Additional Instructions: Please continue taking Prozac as prescribed. Do not drink alcohol or drive/operate heavy machinery as you did receive benzodiazepines in the ER for the rest of the day. Please call your psychiatrist tomorrow morning for further management of anxiety. Continue taking antiepileptics as prescribed. Please return to the emergency department if concern for breakthrough seizure, seizure-like activity, recurrent anxiety, other new concerning symptoms. Referrals: Polo Malik MD [Primary Care Provider] - - Critical Care Critical Care Time: No Attestation: On , the high probability of a clinically significant, sudden or life threatening deterioration of the following system(s) required my full and direct attention, intervention and personal management. The time I documented below is in addition to time spent performing reported procedures but includes the following listed in this critical care notation. Medical Decision Making - Medical Records Medical records reviewed: Yes: I reviewed the patient's medical records. - Tristan Inquiry Pt receiving controlled substance: No Vital Signs: 12/21/20 15:48 12/21/20 16:44 12/21/20 17:00 Temperature 98.6 F Temperature Source Oral Pulse Rate [Left Radial] 80 73 90 Respiratory Rate 20 18 18 Blood Pressure [Right Arm] 133/76 116/64 112/78 Blood Pressure Mean [Right Arm] 95 81 89 Blood Pressure Source [Right Arm] Automatic Cuff Blood Pressure Position [Right Arm] Sitting 02 Sat by Pulse Oximetry 96 97 97 Oxygen Delivery Method Room Air Orders (Tests/Meds): ED MEDICATIONS Discontinued Medications Generic Name Dose Route Start Last Admin Trade Name Mega PRN Reason Stop Dose Admin Lorazepam 1 mg 12/21/20 15:59 12/21/20 16:01 Lorazepam 1mg Tablet PO 12/21/20 16:00 1 mg ONCE ONE Administration Lorazepam 1 mg 12/21/20 17:40 Lorazepam 1mg Tablet PO 12/21/20 17:41 ONCE ONE Medical Decision Narrative: Patient is a 45-year-old female presenting with anxiety. Patient states that she sometimes does get aura prior to her seizures and currently feels anxious and that she may have a seizure. Patient given 1 mg of p.o. Ativan. She is hemodynamically stable without any other neurologic complaints. She states she has been under quite a bit of stress over the past several days. She was started on Prozac 4 days ago for anxiety but is only been taking it for 4 days. No other complaints and she has not actually had a breakthrough seizure today. She typically does have generalized tonic-clonic seizures when she does have breakthrough seizures. She has these several several weeks to months despite taking her medications. I do not believe there is indication for further lab work-up/imaging at this time but patient will be observed in the emergency department to ensure her anxiety improves after p.o. Ativan and to ensure she has no breakthrough seizures. On reassessment patient is much less anxious. She does still have some anxiety and is requesting additional small dose of Ativan. An additional 1 mg tablet given. No seizure-like activity throughout ER stay. At this time, I instructed patient that I am unable to prescribe this type of medicine from the ER. Also she takes Prozac so I cannot prescribe hydroxyzine as there is a reaction. She does have a psychiatrist instructed patient to call her psychiatrist first thing in the morning to discuss other potential options for dealing with anxiety. Patient is on board with this plan. She will return back immediately if any recurrent anxiety, breakthrough seizures, or other new concerning symptoms. Assessment: Anxiety History of seizures Disposition: Home with psychiatry follow-up tomorrow morning General Adult HPI - General Stated complaint: getting read
[2020-12-21 16:44] VITALS: BP 116/64; PULSE 73; RESP 18; O2SAT 97
[2020-12-21 17:00] VITALS: BP 112/78; PULSE 90; RESP 18; O2SAT 97
[2020-12-21 17:43] VITALS: BP 117/78; PULSE 74; RESP 18; O2SAT 96
[2020-12-21 18:13] VITALS: BP 117/78; PULSE 80; RESP 18; TEMP 37; O2SAT 96
== END 2020-12-21 18:14 | disposition home or self-care (01) ==
PROVIDERS: Emergency Provider Emergency Medicine; PCP Family Medicine
DX: G40.909 Epilepsy, unspecified, not intractable, without status epilepticus (principal); E03.9 Hypothyroidism, unspecified; F41.8 Other specified anxiety disorders; F17.210 Nicotine dependence, cigarettes, uncomplicated; Z88.6 Allergy status to analgesic agent; Z88.8 Allergy status to other drugs, medicaments and biological substances; Z79.899 Other long term (current) drug therapy
CPT/HCPCS: 99282